=== PATIENT | female | born 1975 | race Caucasian/White ===

== ENCOUNTER 2017-03-10 10:14 | Emergency (ER) | payer OTHER ==
[~2017-03-10] VITALS: Ht 157.5 cm; Wt 107.0 kg
[~2017-03-10 10:14] MED LIST: ALBU1AER9 INH; ASCO500C43 PO; ATV5X PO; B-COTAB18 PO; CHOL100010 PO; CLX/20 PO; DIPH25CA65 PO; DIPH25TA24 PO; ESTRD2 PO; FEXO1TAB49 PO; HYDR-5688 PO; IBUP-1277 PO; MRLP527 PO; MULT-506 PO; OMEG10007 PO; OMEP20CA9 PO; OXYC-57 PO; RANI300T PO; WLLSR150 PO; ZINC1CAP PO
[2017-03-10 10:17] VITALS: TEMP 36.7; Ht 157.5 cm; Wt 107.0 kg
[2017-03-10] MEDS ORDERED: HYDROmorphone INJ 1 MG/ML SYR IV STA ×2 (10:27→12:20)
[2017-03-10] MEDS ORDERED: SODIUM CHLORIDE 0.9% 1000ML 1,000 ML IV STA (10:27)
[2017-03-10] MEDS ORDERED: ONDANSETRON INJ 2 MG/ML 2 ML VIAL IV STA (10:27)
[2017-03-10] MEDS ORDERED: CETI10TA84 PO (11:16)
[2017-03-10] MEDS ORDERED: MELA1CAP9 PO (11:16)
[2017-03-10] MEDS ORDERED: ALBU18002 INH (11:18)
[2017-03-10] MEDS ORDERED: CHOL100010 PO (11:18)
[2017-03-10 11:23] LABS: BASO % 0.4 %; BASO ABS # 0.03 K/uL (0-0.2); COMPLETE YES; EOS % 2.3 %; HEMATOCRIT 42.2 % (37-47); IG% 0.2 %; LYMPH % 20.5 %; LYMPH ABS # 1.75 K/uL (1.2-3.4); MEAN CELL VOLUME 88.3 fL (80-100); MEAN CORPUSCULAR HEMOGLOBIN 29.9 pg (25-34); MEAN CORPUSCULAR HGB CONC 33.9 g/dl (32-36); MEAN PLATELET VOLUME 10.8 fL (7.4-10.4); MONO % 6.1 %; NEUT % 70.5 %; PLATELET COUNT 218 K/uL (130-400); RED BLOOD COUNT 4.78 M/uL (4.2-5.4); WHITE BLOOD COUNT 8.54 K/uL (4.8-10.8)
[2017-03-10 11:38] LABS: ALT/SGPT 27 U/L (12-78); AST/SGOT 11 U/L (15-37); BLOOD UREA NITROGEN 18 mg/dl (7-18); BUN/CREATININE RATIO 20.9 (10-20); CALCIUM 8.6 mg/dl (8.5-10.1); CARBON DIOXIDE 25 mmol/L (21-32); CHLORIDE 109 mmol/L (98-107); CREATININE 0.84 mg/dl (0.60-1.20); GLUCOSE 135 mg/dl (70-99); POTASSIUM 4.2 mmol/L (3.5-5.1); SODIUM 140 mmol/L (136-145)
[2017-03-10 11:39] LABS: ALKALINE PHOSPHATASE 65 U/L (45-117)
[2017-03-10] MEDS ORDERED: OPTIRAY 320 IV PRN (12:30)
[2017-03-10 12:49] LABS: URINE APPEARANCE CLEAR (CLEAR); URINE BILIRUBIN NEG (NEG); URINE COLOR YELLOW; URINE EPITHELIAL CELL AUTO >30 /lpf (0-5); URINE NITRITE NEG (NEG); URINE SPECIFIC GRAVITY 1.026 (1.000-1.030); UROBILINOGEN NEG (NEG); ZZUR CULT IF INDIC CLEAN CATCH YES
[2017-03-10 12:53] LABS: MANUAL MICROSCOPIC REQUIRED? NO; REVIEW REQ? NO
--- NOTE | 2017-03-10 13:09 | DIAGNOSTIC IMAGING REPORT ---
ABDOMEN AND PELVIS CT WITH IV CONTRAST CT DOSE: 1522.35 mGy.cm HISTORY: Pain ll. Abd pain TECHNIQUE: Multiaxial CT images of the abdomen and pelvis were performed following the use of intravenous contrast. COMPARISON STUDY: None. Findings: Lung bases are clear. Liver spleen and pancreas are unremarkable. The gallbladder has been surgically removed. Nonobstructing calcification lower pole right kidney. No evidence renal hydronephrosis. Several bowel containing ventral hernias unchanged from the prior exam. No evidence for obstructive change or bowel incarceration. Chronic descending and sigmoid colonic diverticulosis. No evidence for acute diverticulitis. Appendix is normal. IMPRESSION: 1. Chronic sigmoid and descending colonic diverticulosis. 2. Several bowel containing ventral hernia is unchanged in the prior study and considered nonobstructing. 3. Nonobstructing calcification lower pole right kidney. 4. No acute process of the abdomen or pelvis. Electronically signed by: Vin Gonzalez M.D. 03/10/2017 1:07 PM Dictated Date/Time: 03/10/2017 1:04 PM
[2017-03-10 14:22] VITALS: BP 154/95; PULSE 74; O2SAT 100
--- NOTE | 2017-03-10 17:33 | EMERGENCY ROOM VISIT NOTE ---
History Report prepared by Federica: Jackie Rodríguez Under the Supervision of: Dr. [place] Michael D.O. First contact with patient: 10:20 Chief Complaint: ABDOMINAL PAIN Stated Complaint: SEVERE ABDOMINAL PAIN Nursing Triage Summary: pt here with left lower quad pain x one hour. pt states hx of diverticulitis. denies diarrhea. some nausea History of Present Illness The patient is a 41 year old female who presents to the Emergency Room with complaints of persistent LLQ abdominal pain starting 2 hours ago. She rates her discomfort as a 10/10 in severity. The pain started suddenly. She has had abdominal problems before. She has had a cholecystectomy, colon resection, and hysterectomy. She still has her appendix. She has a history of kidney stones and diverticulitis. The pain does not feel like a kidney stone. She had some dry heaving this morning. She denies any fever, dysuria or vaginal discharge. No vaginal bleeding or vaginal discharge. No exacerbating or remitting factors. Source of History: patient Onset: 2 hours ago Position: abdomen (LLQ) Symptom Intensity: 10/10 Timing: other (persistent) Associated Symptoms: No fevers Note: Pt reports dry heaving. Pt denies dysuria, vaginal discharge. Review of Systems See HPI for pertinent positives & negatives. A total of 10 systems reviewed and were otherwise negative. Past Medical & Surgical Medical Problems: (1) Anxiety State Nos (2) Asthma, Unspecified (3) Diverticulitis (4) Diverticulitis (5) Ectopic (6) Emphysema Nec (7) Endometriosis (8) Fem Pelvic Periton Adh-Post-Op/Inf (9) Hx-Venous Thrombosis&Embolism (10) Int Hemorrhoid W/O Compl (11) Ovarian Cyst Nec/Nos (12) Personal History Of Urinary Calculi (13) Ventral Hernia Nos Surgical Problems: (1) H/O oophorectomy (2) H/O: hysterectomy (3) History of bowel resection Family History Diabetes mellitus FH: diverticulitis FH: heart disease Kidney disease Social History Smoking Status: Current Every Day Smoker Alcohol Use: occasionally Drug Use: none Marital Status: Housing Status: lives with significant other Occupation Status: employed Current/Historical Medications Scheduled Ascorbic Acid (Vitamin C 500 mg), 1,000 MG PO DAILY B-Complex Vitamins (Vitamin B Complex), 1 TAB PO DAILY Bupropion HCl (Bupropion HCl Sr), 150 MG PO BID Cetirizine (Zyrtec), 10 MG PO DAILY Cholecalciferol (Vitamin D), 1,000-2,000 UNITS PO DAILY Citalopram (Citalopram Hydrobromide), 20 MG PO DAILY Estradiol (Estradiol), 2 MG PO DAILY Fish Oil (Peebles-3), 1 CAP PO DAILY Melatonin (Melatonin), 10 MG PO HS Multivitamin (Multivitamin), 1 TAB PO DAILY Omeprazole (Prilosec), 20 MG PO BID Ranitidine Hcl (Zantac), 300 MG PO HS Scheduled PRN Albuterol Sulfate (Proair Respiclick), 2 PUFFS INH QID PRN for SOB/Wheezing Diphenhydramine Hcl (Benadryl Allergy), 2 CAP PO UD PRN for ALLERGIC REACTION Ibuprofen (Advil), 600 MG PO Q6H PRN for Pain Lorazepam (Lorazepam), 0.5 MG PO TID PRN for Anxiety Polyethylene (Polyethylene Glycol 3350), 1 TBS PO DAILY PRN for Severe Constipation Allergies Coded Allergies: Piperacillin (Verified Allergy, Severe, SHORTNESS OF BREATH, 10/31/16) Tazobactam (Verified Allergy, Severe, SHORTNESS OF BREATH, 10/31/16) Morphine (Verified Adverse Reaction, Unknown, GI SYMPTOMS, 10/31/16) Physical Exam Vital Signs Date Time Temp Pulse Resp B/P Pulse Ox O2 Delivery O2 Flow Rate FiO2 03/10/17 14:22 74 16 154/95 100 03/10/17 13:16 88 20 150/83 98 Room Air 03/10/17 10:17 36.7 83 16 95 Physical Exam GENERAL: sitting up in bed, disheveled, moderate distress, holding LLQ EYE EXAM: normal conjunctiva OROPHARYNX: no exudate, no erythema, lips, buccal mucosa, and tongue normal and mucous membranes are moist NECK: supple, no nuchal rigidity, no adenopathy, non-tender LUNGS: Clear to auscultation. Normal chest wall mechanics HEART: no murmurs, S1 normal and S2 normal ABDOMEN: abdomen soft, tenderness to palpation in the LLQ, normo-active bowel sounds, no masses, no rebound or guarding. BACK: Back is symmetrical on inspection and there is no deformity, no midline tenderness, no CVA tenderness. SKIN: no rashes and no bruising UPPER EXTREMITIES: upper extremities are grossly normal. LOWER EXTREMITIES: No pitting edema. NEURO EXAM: Normal sensorium, cranial nerves II-XII grossly intact, normal speech, no gross weakness of arms, no gross weakness of legs. Medical Decision & Procedures ER Provider Diagnostic Interpretation: Radiology results as stated below per my review and the radiologist's interpretation: ABDOMEN AND PELVIS CT WITH IV CONTRAST CT DOSE: 1522.35 mGy.cm HISTORY: Pain ll. Abd pain TECHNIQUE: Multiaxial CT images of the abdomen and pelvis were performed following the use of intravenous contrast. COMPARISON STUDY: None. Findings: Lung bases are clear. Liver spleen and pancreas are unremarkable. The gallbladder has been surgically removed. Nonobstructing calcification lower pole right kidney. No evidence renal hydronephrosis. Several bowel containing ventral hernias unchanged from the prior exam. No evidence for obstructive change or bowel incarceration. Chronic descending and sigmoid colonic diverticulosis. No evidence for acute diverticulitis. Appendix is normal. IMPRESSION: 1. Chronic sigmoid and descending colonic diverticulosis. 2. Several bowel containing ventral hernia is unchanged in the prior study and considered nonobstructing. 3. Nonobstructing calcification lower pole right kidney. 4. No acute process of the abdomen or pelvis. Electronically signed by: Vin Gonzalez M.D. 03/10/2017 1:07 PM Dictated Date/Time: 03/10/2017 1:04 PM Laboratory Results 03/10/17 11:08 Red Blood Count 4.78, Mean Corpuscular Volume 88.3, Mean Corpuscular Hemoglobin 29.9, Mean Corpuscular Hemoglobin Concent 33.9, Mean Platelet Volume 10.8, Neutrophils (%) (Auto) 70.5, Lymphocytes (%) (Auto) 20.5, Monocytes (%) (Auto) 6.1, Eosinophils (%) (Auto) 2.3, Basophils (%) (Auto) 0.4, Neutrophils # (Auto) 6.02, Lymphocytes # (Auto) 1.75, Monocytes # (Auto) 0.52, Eosinophils # (Auto) 0.20, Basophils # (Auto) 0.03 03/10/17 11:08 Test 03/10/17 11:08 03/10/17 12:30 White Blood Count 8.54 K/uL (4.8-10.8) Red Blood Count 4.78 M/uL (4.2-5.4) Hemoglobin 14.3 g/dL (12.0-16.0) Hematocrit 42.2 % (37-47) Mean Corpuscular Volume 88.3 fL (80-100) Mean Corpuscular Hemoglobin 29.9 pg (25-34) Mean Corpuscular Hemoglobin Concent 33.9 g/dl (32-36) Platelet Count 218 K/uL (130-400) Mean Platelet Volume 10.8 fL (7.4-10.4) Neutrophils (%) (Auto) 70.5 % Lymphocytes (%) (Auto) 20.5 % Monocytes (%) (Auto) 6.1 % Eosinophils (%) (Auto) 2.3 % Basophils (%) (Auto) 0.4 % Neutrophils # (Auto) 6.02 K/uL (1.4-6.5) Lymphocytes # (Auto) 1.75 K/uL (1.2-3.4) Monocytes # (Auto) 0.52 K/uL (0.11-0.59) Eosinophils # (Auto) 0.20 K/uL (0-0.5) Basophils # (Auto) 0.03 K/uL (0-0.2) RDW Standard Deviation 44.7 fL (36.4-46.3) RDW Coefficient of Variation 13.8 % (11.5-14.5) Immature Granulocyte % (Auto) 0.2 % Immature Granulocyte # (Auto) 0.02 K/uL (0.00-0.02) Anion Gap 6.0 mmol/L (3-11) Est Creatinine Clear Calc Drug Dose 103.4 ml/min Estimated GFR () 101.5 Estimated GFR (Non- 87.6 BUN/Creatinine Ratio 20.9 (10-20) Calcium Level 8.6 mg/dl (8.5-10.1) Total Bilirubin 0.3 mg/dl (0.2-1) Direct Bilirubin < 0.1 mg/dl (0-0.2) Aspartate Amino Transf (AST/SGOT) 11 U/L (15-37) Alanine Aminotransferase (ALT/SGPT) 27 U/L (12-78) Alkaline Phosphatase 65 U/L (45-117) Total Protein 7.5 gm/dl (6.4-8.2) Albumin 3.5 gm/dl (3.4-5.0) Lipase 120 U/L (73-393) Urine Color YELLOW Urine Appearance CLEAR (CLEAR) Urine pH 5.0 (4.5-7.5) Urine Specific [place] 1.026 (1.000-1.030) Urine Protein NEG (NEG) Urine Glucose (UA) NEG (NEG) Urine Ketones NEG (NEG) Urine Occult Blood 1+ (NEG) Urine Nitrite NEG (NEG) Urine Bilirubin NEG (NEG) Urine Urobilinogen NEG (NEG) Urine Leukocyte Esterase SMALL (NEG) Urine WBC (Auto) 5-10 /hpf (0-5) Urine RBC (Auto) 5-10 /hpf (0-4) Urine Hyaline Casts (Auto) 1-5 /lpf (0-5) Urine Epithelial Cells (Auto) >30 /lpf (0-5) Urine Bacteria (Auto) 2+ (NEG) Urine Test NEG (NEG) Laboratory results per my review. Medications Administered Medications (Trade) Dose Ordered Sig/Alison Route Start Time Stop Time Status Last Admin Dose Admin Sodium Chloride (Nss 1000ml) 1,000 ml @ 999 mls/hr Q1H1M STAT IV 03/10/17 10:27 03/10/17 11:27 DC 03/10/17 10:27 999 MLS/HR Ondansetron HCl (Zofran Inj) 4 mg NOW STAT IV 03/10/17 10:27 03/10/17 10:29 DC 03/10/17 11:20 4 MG Hydromorphone HCl (Dilaudid Inj) 1 mg NOW STAT IV 03/10/17 10:27 03/10/17 10:29 DC 03/10/17 11:21 1 MG Hydromorphone HCl (Dilaudid Inj) 1 mg NOW STAT IV 03/10/17 12:20 03/10/17 12:21 DC 03/10/17 12:26 1 MG ED Course ED COURSE: Vital signs were reviewed and showed tachycardia. The patients medical record was reviewed The above diagnostic studies were performed and reviewed. ED treatments and interventions as stated above. 1021: The patient was evaluated in room A10. A complete history and physical examination was performed. 1027: Dilaudid Inj 1 mg IV, Zofran Inj 4 mg IV, NSS 1000 ml @ 999 mls/hr IV. 1220: Dilaudid Inj 1 mg IV. 1348: Upon reevaluation, the patient is resting comfortably.I discussed my findings with the patient and she understands and agrees with the treatment plan. Based on the patients age, coexisting illnesses, exam and lab findings the decision to treat as an outpatient was made. The patient remained stable while under my care. The patient appeared well at the time of discharge. Medical Decision Differential diagnoses includes but is not limited to gastritis, peptic ulcer disease, GERD, gallbladder disease, pancreatitis, small bowel obstruction, acute coronary syndrome, pericarditis, ischemic bowel, irritable bowel disease, irritable bowel syndrome, appendicitis, diverticulitis, malignancy, hernia, urinary tract infection, torsion, perforation, trauma, infectious. Patient is a 41-year-old female who presents the ER for left lower quadrant pain which started suddenly around 1:30. She does have a history of diverticulitis and kidney stones. She has had a previous cholecystectomy and total hysterectomy. CBC along with BMP, LFTs, bilirubin and lipase was unremarkable. UA shows greater than 30 epithelial cells with a small amount of white cells and leuks. She was given 2 doses of IV narcotics and had significant improvement of her pain. CT of her abdomen pelvis was unremarkable. Urine was negative. Patient was updated in regards to findings and was discharged comfortable to follow-up with her PCP for an abdominal recheck. Discussed with Pt concerning signs and symptoms to watch out for. Pt was instructed to follow up with their PCP and discussed with the patient their option to return to the ED at anytime for persistent or worsening symptoms. The appropriate anticipatory guidance and out-patient management, including indications for return to the emergency department, were explained at length to the patient and understood. Impression Primary Impression: Abdominal pain Scribe Attestation The scribe's documentation has been prepared under my direction and personally reviewed by me in its entirety. I confirm that the note above accurately reflects all work, treatment, procedures, and medical decision making performed by me. Departure Information Dispostion Home / Self-Care Referrals Jenna Romero M.D. (MEDICAL) (PCP) Forms Call Back Authorization, HOME CARE DOCUMENTATION FORM, IMPORTANT VISIT INFORMATION Patient Instructions Abdominal Pain - [facility], [facility] Additional Instructions Please follow up with your primary care doctor with in the next 24 hours. Any worsening of your symptoms, please return to the ED immediately. This includes fevers greater than 100.4, worsening pain, unable to eat or drink, or any other concerning signs or symptoms from your standpoint. Please take Motrin or Tylenol as needed for pain. Problem Qualifiers Primary Impression: Abdominal pain Abdominal location: unspecified location Qualified Codes: R10.9 - Unspecified abdominal pain
== END 2017-03-10 14:24 | disposition home or self-care (01) ==
LOC: C.EDB 10:15 → C.EDA 14:24
DX: R10.32 Left lower quadrant pain (principal); Z90.49 Acquired absence of other specified parts of digestive tract; Z90.710 Acquired absence of both cervix and uterus; Z87.442 Personal history of urinary calculi; F41.9 Anxiety disorder, unspecified; Z83.3 Family history of diabetes mellitus; J45.909 Unspecified asthma, uncomplicated; Z79.899 Other long term (current) drug therapy

== ENCOUNTER 2017-06-29 16:28 | Emergency (ER) | payer BC, OTHER ==
[~2017-06-29] VITALS: Ht 157.5 cm; Wt 113.4 kg
[~2017-06-29 16:28] MED LIST changes: +ALBU18002 INH; -ALBU1AER9 INH; +CETI10TA84 PO; -DIPH25TA24 PO; -FEXO1TAB49 PO; -HYDR-5688 PO; +MELA1CAP9 PO; -OXYC-57 PO; -ZINC1CAP PO
[2017-06-29 16:30] VITALS: Ht 157.5 cm; Wt 113.4 kg
[2017-06-29] MEDS ORDERED: FEXO1TAB58 PO (16:42)
[2017-06-29] MEDS ORDERED: ONDANSETRON INJ 2 MG/ML 2 ML VIAL IV STA (17:16)
[2017-06-29] MEDS ORDERED: SODIUM CHLORIDE 0.9% 1000ML 1,000 ML IV SCH (17:30)
[2017-06-29] MEDS ORDERED: FENTANYL CITRATE INJ 50 MCG/1 ML 2 ML VIAL IV ONE (17:30)
[2017-06-29 18:00] LABS: BASO % 0.4 %; BASO ABS # 0.04 K/uL (0-0.2); COMPLETE YES; EOS % 1.9 %; HEMATOCRIT 41.8 % (37-47); IG% 0.3 %; LYMPH % 23.1 %; LYMPH ABS # 2.46 K/uL (1.2-3.4); MEAN CELL VOLUME 89.9 fL (80-100); MEAN CORPUSCULAR HEMOGLOBIN 31.2 pg (25-34); MEAN CORPUSCULAR HGB CONC 34.7 g/dl (32-36); MEAN PLATELET VOLUME 11.1 fL (7.4-10.4); MONO % 6.1 %; NEUT % 68.2 %; PLATELET COUNT 208 K/uL (130-400); RED BLOOD COUNT 4.65 M/uL (4.2-5.4); WHITE BLOOD COUNT 10.67 K/uL (4.8-10.8)
[2017-06-29 18:02] LABS: VEN BLOOD GAS BASE EXCESS 0.5 mEq/L
[2017-06-29 18:27] LABS: ALT/SGPT 37 U/L (12-78); BLOOD UREA NITROGEN 20 mg/dl (7-18); BUN/CREATININE RATIO 25.2 (10-20); CALCIUM 8.9 mg/dl (8.5-10.1); CARBON DIOXIDE 25 mmol/L (21-32); CHLORIDE 109 mmol/L (98-107); GLUCOSE 133 mg/dl (70-99); SODIUM 140 mmol/L (136-145)
[2017-06-29 18:30] LABS: ALKALINE PHOSPHATASE 69 U/L (45-117); AST/SGOT 20 U/L (15-37)
[2017-06-29] MEDS ORDERED: METOCLOPRAMIDE HCL INJ 5 MG/ML 2 ML VIAL IV STA (18:59)
[2017-06-29] MEDS ORDERED: HYDROmorphone INJ 0.5 MG/0.5 ML SYR IV STA (18:59)
[2017-06-29] MEDS ORDERED: OPTIRAY 320 IV PRN (20:00)
--- NOTE | 2017-06-29 20:21 | DIAGNOSTIC IMAGING REPORT ---
CT ABD/PELVIS IV AND ORAL CONT CLINICAL HISTORY: Diffuse abdominal pain. History of salpingo-oophorectomy, hysterectomy, partial colectomy. COMPARISON STUDY: 03/10/2017 TECHNIQUE: Following the IV administration of 92 mL of Optiray-320, CT scan of the abdomen and pelvis was performed from the lung bases to the proximal femurs. Images are reviewed in the axial, sagittal, and coronal planes. IV contrast was administered without complication. A dose lowering technique was utilized adhering to the principles of ALARA. CT DOSE: 1464.33 mGy.cm FINDINGS: Lower chest: There are minimal dependent atelectatic changes. Liver: There is hepatic steatosis. No focal masses are visualized. Gallbladder: Surgically absent Spleen: Normal in size and attenuation. Pancreas: Unremarkable. Adrenal glands: Unremarkable. Kidneys: No focal renal masses are visualized. There is a 3 mm nonobstructing lower pole right renal calculus. There is no hydronephrosis. Bowel: There are no transition zones indicate bowel obstruction. The appendix appears normal. There is colonic diverticulosis. There is a sigmoid anastomotic suture line. There is no acute diverticulitis. There is a bilobed umbilical hernia containing small bowel and colonic loops. There is no current evidence of obstruction. There is a lower ventral hernia containing small bowel loops. There is no current evidence of obstruction. Peritoneum: There is no intraperitoneal free air or abdominal ascites. Vasculature: The abdominal aorta is normal in course and caliber. Adenopathy: None. Pelvic viscera: The uterus appears surgically absent Skeletal structures: No destructive osseous lesions are seen. IMPRESSION: 1. No evidence of bowel obstruction. No evidence of free air 2. Nonobstructing 3 mm lower pole right renal calculus 3. Moderate diverticulosis. No evidence of acute diverticulitis 4. Normal appendix 5. Bowel containing ventral hernias, similar to the preceding study. Electronically signed by: Merrill Avalos M.D. 06/29/2017 8:19 PM Dictated Date/Time: 06/29/2017 8:14 PM
[2017-06-29 20:22] LABS: URINE APPEARANCE CLEAR (CLEAR); URINE BILIRUBIN NEG (NEG); URINE COLOR YELLOW; URINE NITRITE NEG (NEG); URINE SPECIFIC GRAVITY 1.022 (1.000-1.030); UROBILINOGEN NEG (NEG); ZZUR CULT IF INDIC CLEAN CATCH NO
[2017-06-29 20:25] LABS: MANUAL MICROSCOPIC REQUIRED? NO; REVIEW REQ? NO
[2017-06-29] MEDS ORDERED: ONDANSETRON 4MG OD TAB PO STA (20:52)
[2017-06-29] MEDS ORDERED: TRAMADOL HCL 50 MG TAB PO STA (20:52)
--- NOTE | 2017-06-29 20:58 | EMERGENCY ROOM VISIT NOTE ---
History Report prepared by Federica: Flex Prado Under the Supervision of: Dr. Reji Garcia M.D. First contact with patient: 16:33 Chief Complaint: ABDOMINAL PAIN Stated Complaint: ABDOMINAL PAIN Nursing Triage Summary: patietn c/o generalized abdominal and nausea since around 1300 today. denies vomiting, diarrhea. History of Present Illness The patient is a 42 year old white female who presents to the ED with a cc of centralized abdominal pain. History of hysterectomy, oophorectomy, cholecystectomy, and colon resection. Hysterectomy was due to a ruptured ectopic , and colon resection was related to diverticulitis. Symptoms began four hours ago and have been constant since. Feels that her lower abdomen is "hard". Pain described as "sharp". Positive nausea. Her pain is improved and worsened with sitting in certain positions. Negative urinary symptoms, leg swelling, bloody stool, vaginal discharge, vomiting. No recent travel. No recent injury or straining. Source of History: patient Onset: Four hours ago Position: abdomen (centralized) Quality: sharp Timing: constant Modifying Factors (Worsening): other (sitting in certain positions) Modifying Factors (Relieving): other (sitting in certain positions) Associated Symptoms: + nausea, No vomiting, No hematochezia, No urinary symptoms Note: The patient denies vaginal discharge, or leg swelling. Review of Systems See HPI for pertinent positives and negatives. A total of ten systems were reviewed and were otherwise negative. Past Medical & Surgical Medical Problems: (1) Anxiety State Nos (2) Asthma, Unspecified (3) Diverticulitis (4) Diverticulitis (5) Ectopic (6) Emphysema Nec (7) Endometriosis (8) Fem Pelvic Periton Adh-Post-Op/Inf (9) Hx-Venous Thrombosis&Embolism (10) Int Hemorrhoid W/O Compl (11) Ovarian Cyst Nec/Nos (12) Personal History Of Urinary Calculi (13) Ventral Hernia Nos Surgical Problems: (1) H/O oophorectomy (2) H/O: hysterectomy (3) History of bowel resection Family History Diabetes mellitus FH: diverticulitis FH: heart disease Kidney disease Social History Smoking Status: Current Every Day Smoker Alcohol Use: occasionally Drug Use: none Marital Status: Housing Status: lives with significant other Occupation Status: employed Current/Historical Medications Scheduled B-Complex Vitamins (Vitamin B Complex), 1 TAB PO DAILY Cholecalciferol (Vitamin D), 1,000-2,000 UNITS PO DAILY Fexofenadine-Pseudoephedrine (Aleida-D 24 Hour Allergy), 1 TAB PO DAILY Fish Oil (Tahoma-3), 1 CAP PO DAILY Melatonin (Melatonin), 10 MG PO HS Scheduled PRN Albuterol Sulfate (Proair Respiclick), 2 PUFFS INH QID PRN for SOB/Wheezing Diphenhydramine Hcl (Benadryl Allergy), 2 CAP PO UD PRN for ALLERGIC REACTION Ibuprofen (Advil), 600 MG PO Q6H PRN for Pain Allergies Coded Allergies: Piperacillin (Verified Allergy, Severe, SHORTNESS OF BREATH, 06/29/17) Tazobactam (Verified Allergy, Severe, SHORTNESS OF BREATH, 06/29/17) Morphine (Verified Adverse Reaction, Unknown, GI SYMPTOMS, 06/29/17) Physical Exam Vital Signs Date Time Temp Pulse Resp B/P (MAP) Pulse Ox O2 Delivery O2 Flow Rate FiO2 06/29/17 22:03 36.7 77 18 168/130 98 06/29/17 20:14 77 18 168/130 98 Room Air 06/29/17 19:27 85 20 190/131 96 06/29/17 16:30 36.7 104 18 160/107 97 Room Air Physical Exam GENERAL: Awake, alert, well-appearing. Tearful on exam. HENT: Normocephalic, atraumatic. EYES: Normal conjunctiva. Sclera non-icteric. NECK: Supple. No nuchal rigidity. FROM. RESPIRATORY: CTAB, no rhonchi, wheezing, crackles CARDIAC: RRR, no MRG ABDOMEN: Soft, BS+. Periumbilical tenderness. Mild Suprapubic tenderness. MSK: No chest wall TTP, no LE edema NEURO: GCS 15, CN 2-12 intact, moves all 4s on command SKIN: No rash or jaundice noted. Warm to the touch. Medical Decision & Procedures ER Provider Diagnostic Interpretation: CT: Radiology results as stated below per my review and radiologist interpretation CT ABD/PELVIS IV AND ORAL CONT FINDINGS: Lower chest: There are minimal dependent atelectatic changes. Liver: There is hepatic steatosis. No focal masses are visualized. Gallbladder: Surgically absent Spleen: Normal in size and attenuation. Pancreas: Unremarkable. Adrenal glands: Unremarkable. Kidneys: No focal renal masses are visualized. There is a 3 mm nonobstructing lower pole right renal calculus. There is no hydronephrosis. Bowel: There are no transition zones indicate bowel obstruction. The appendix appears normal. There is colonic diverticulosis. There is a sigmoid anastomotic suture line. There is no acute diverticulitis. There is a bilobed umbilical hernia containing small bowel and colonic loops. There is no current evidence of obstruction. There is a lower ventral hernia containing small bowel loops. There is no current evidence of obstruction. Peritoneum: There is no intraperitoneal free air or abdominal ascites. Vasculature: The abdominal aorta is normal in course and caliber. Adenopathy: None. Pelvic viscera: The uterus appears surgically absent Skeletal structures: No destructive osseous lesions are seen. IMPRESSION: 1. No evidence of bowel obstruction. No evidence of free air 2. Nonobstructing 3 mm lower pole right renal calculus 3. Moderate diverticulosis. No evidence of acute diverticulitis 4. Normal appendix 5. Bowel containing ventral hernias, similar to the preceding study. Electronically signed by: Merrill Avalos M.D. Laboratory Results 06/29/17 17:50 Red Blood Count 4.65, Mean Corpuscular Volume 89.9, Mean Corpuscular Hemoglobin 31.2, Mean Corpuscular Hemoglobin Concent 34.7, Mean Platelet Volume 11.1, Neutrophils (%) (Auto) 68.2, Lymphocytes (%) (Auto) 23.1, Monocytes (%) (Auto) 6.1, Eosinophils (%) (Auto) 1.9, Basophils (%) (Auto) 0.4, Neutrophils # (Auto) 7.29, Lymphocytes # (Auto) 2.46, Monocytes # (Auto) 0.65, Eosinophils # (Auto) 0.20, Basophils # (Auto) 0.04 06/29/17 17:50 Test 06/29/17 17:50 06/29/17 20:00 White Blood Count 10.67 K/uL (4.8-10.8) Red Blood Count 4.65 M/uL (4.2-5.4) Hemoglobin 14.5 g/dL (12.0-16.0) Hematocrit 41.8 % (37-47) Mean Corpuscular Volume 89.9 fL (80-100) Mean Corpuscular Hemoglobin 31.2 pg (25-34) Mean Corpuscular Hemoglobin Concent 34.7 g/dl (32-36) Platelet Count 208 K/uL (130-400) Mean Platelet Volume 11.1 fL (7.4-10.4) Neutrophils (%) (Auto) 68.2 % Lymphocytes (%) (Auto) 23.1 % Monocytes (%) (Auto) 6.1 % Eosinophils (%) (Auto) 1.9 % Basophils (%) (Auto) 0.4 % Neutrophils # (Auto) 7.29 K/uL (1.4-6.5) Lymphocytes # (Auto) 2.46 K/uL (1.2-3.4) Monocytes # (Auto) 0.65 K/uL (0.11-0.59) Eosinophils # (Auto) 0.20 K/uL (0-0.5) Basophils # (Auto) 0.04 K/uL (0-0.2) RDW Standard Deviation 43.5 fL (36.4-46.3) RDW Coefficient of Variation 13.2 % (11.5-14.5) Immature Granulocyte % (Auto) 0.3 % Immature Granulocyte # (Auto) 0.03 K/uL (0.00-0.02) Venous Blood pH 7.42 (7.36-7.41) Venous Blood Partial Pressure CO2 40 mmHg (38.0-50.0) Venous Blood Partial Pressure O2 55 mmHg Venous Blood HCO3 25 mmol/L Venous Blood Oxygen Saturation 89.0 % Venous Blood Base Excess 0.5 mEq/L Anion Gap 6.0 mmol/L (3-11) Est Creatinine Clear Calc Drug Dose 111.3 ml/min Estimated GFR () 106.9 Estimated GFR (Non- 92.2 BUN/Creatinine Ratio 25.2 (10-20) Lactic Acid Level 1.0 mmol/L (0.4-2.0) Calcium Level 8.9 mg/dl (8.5-10.1) Total Bilirubin 0.2 mg/dl (0.2-1) Direct Bilirubin < 0.1 mg/dl (0-0.2) Aspartate Amino Transf (AST/SGOT) 20 U/L (15-37) Alanine Aminotransferase (ALT/SGPT) 37 U/L (12-78) Alkaline Phosphatase 69 U/L (45-117) Total Protein 7.2 gm/dl (6.4-8.2) Albumin 3.5 gm/dl (3.4-5.0) Lipase 107 U/L (73-393) Urine Color YELLOW Urine Appearance CLEAR (CLEAR) Urine pH 5.0 (4.5-7.5) Urine Specific Draper 1.022 (1.000-1.030) Urine Protein NEG (NEG) Urine Glucose (UA) NEG (NEG) Urine Ketones NEG (NEG) Urine Occult Blood 1+ (NEG) Urine Nitrite NEG (NEG) Urine Bilirubin NEG (NEG) Urine Urobilinogen NEG (NEG) Urine Leukocyte Esterase NEG (NEG) Urine WBC (Auto) 1-5 /hpf (0-5) Urine RBC (Auto) 0-4 /hpf (0-4) Urine Hyaline Casts (Auto) 0 /lpf (0-5) Urine Epithelial Cells (Auto) 10-20 /lpf (0-5) Urine Bacteria (Auto) NEG (NEG) Urine Test NEG (NEG) Laboratory results reviewed by me Medications Administered Medications (Trade) Dose Ordered Sig/Alison Route Start Time Stop Time Status Last Admin Dose Admin Ondansetron HCl (Zofran Inj) 4 mg NOW STAT IV 06/29/17 17:16 06/29/17 17:20 DC 06/29/17 17:16 4 MG Sodium Chloride 1,000 ml @ 999 mls/hr Q1H1M IV 06/29/17 17:30 06/29/17 22:51 DC 06/29/17 17:30 999 MLS/HR Fentanyl Citrate (Fentanyl Inj) 100 mcg NOW ONCE IV 06/29/17 17:30 06/29/17 17:31 DC 06/29/17 17:30 100 MCG Hydromorphone HCl (Dilaudid Inj) 0.5 mg NOW STAT IV 06/29/17 18:59 06/29/17 19:00 DC 06/29/17 19:14 0.5 MG Metoclopramide HCl (Reglan Inj) 10 mg NOW STAT IV 06/29/17 18:59 06/29/17 19:00 DC 06/29/17 19:14 10 MG Ondansetron HCl (Zofran Odt) 8 mg NOW STAT PO 06/29/17 20:52 06/29/17 20:55 DC 06/29/17 22:10 8 MG Ondansetron HCl (ZOFRAN ODT 4MG Home Pack) 1 homepack UD ONCE PO 06/29/17 21:00 06/29/17 21:01 DC 06/29/17 22:10 1 HOMEPACK Tramadol HCl (Ultram Home Pack) 1 homepack UD ONCE PO 06/29/17 21:00 06/29/17 21:01 DC 06/29/17 22:10 1 HOMEPACK Tramadol HCl (Ultram Tab) 50 mg NOW STAT PO 06/29/17 20:52 06/29/17 20:55 DC 06/29/17 22:10 50 MG ECG Indication: chest pain Rate (beats per minute): 73 Rhythm: normal sinus Findings: other (single isolated inferior Q wave in lead 3, single isolated ? elevation in V2 but w/o continguous changes, no other STS changes or TWI present ) ED Course 1707: The patient was evaluated in room B3B. A complete history and physical exam was performed. 1854: I reassessed the patient. She is still having pain. Medical Decision The patient is a 42 year old white female who presents to the ED with a cc of centralized abdominal pain. Differential diagnoses include but are not limited to: PUD, appendicitis, kidney stone, gastritis, and bowel obstruction. Patient blood work fairly unremarkable. UA, UPT neg for infection/ respectively. Patient pain improved. Patient CT negative acute for medical or surgical emergency requiring admission. Patient tolerated PO. Patient w/ mild CP upon being told would be discharged. EKG was obtained to evaluate. No STS changes or TWI in contiguous leads, less likely ACS. Patient feeling improved. Given f/u, d/c, and return precautions and patient d/c'ed to home. Impression Primary Impression: Abdominal pain Scribe Attestation The scribe's documentation has been prepared under my direction and personally reviewed by me in its entirety. I confirm that the note above accurately reflects all work, treatment, procedures, and medical decision making performed by me. Departure Information Dispostion Home / Self-Care Referrals Jenna Romero M.D. (MEDICAL) (PCP) Patient Instructions Abdominal Pain, Diet High Fiber, My [employer] Additional Instructions Please take your medications as prescribed. If you worsening symptoms not amenable to at-home treatment please call your primary care physician's office or return to the ED for further management.
[2017-06-29] MEDS ORDERED: ONDANSETRON HOME PACK 4MG OD TAB PO ONE (21:00)
[2017-06-29] MEDS ORDERED: TRAMADOL HCL 50 MG HOME PACK PO ONE (21:00)
[2017-06-29 22:03] VITALS: BP 168/130; PULSE 77; TEMP 36.7; O2SAT 98
== END 2017-06-29 22:05 | disposition home or self-care (01) ==
LOC: C.EDB 16:29
DX: R10.30 Lower abdominal pain, unspecified (principal); F41.9 Anxiety disorder, unspecified; K57.92 Diverticulitis of intestine, part unspecified, without perforation or abscess without bleeding; J43.9 Emphysema, unspecified; J45.909 Unspecified asthma, uncomplicated; N83.209 Unspecified ovarian cyst, unspecified side; F17.200 Nicotine dependence, unspecified, uncomplicated; Z86.718 Personal history of other venous thrombosis and embolism; Z87.442 Personal history of urinary calculi; Z90.710 Acquired absence of both cervix and uterus; Z79.899 Other long term (current) drug therapy; Z88.5 Allergy status to narcotic agent; Z88.8 Allergy status to other drugs, medicaments and biological substances; Z83.3 Family history of diabetes mellitus; Z83.79 Family history of other diseases of the digestive system; Z82.49 Family history of ischemic heart disease and other diseases of the circulatory system; Z84.1 Family history of disorders of kidney and ureter

== ENCOUNTER 2018-07-11 18:44 | Emergency (ER) | payer BC, OTHER ==
[~2018-07-11] VITALS: Ht 154.9 cm; Wt 122.3 kg
[~2018-07-11 18:44] MED LIST changes: -ASCO500C43 PO; -ATV5X PO; -CETI10TA84 PO; -CLX/20 PO; -ESTRD2 PO; +FEXO1TAB58 PO; -MRLP527 PO; -MULT-506 PO; -OMEP20CA9 PO; -RANI300T PO; -WLLSR150 PO
[2018-07-11 18:47] VITALS: TEMP 37; Ht 154.9 cm; Wt 122.3 kg
[2018-07-11] MEDS ORDERED: KETOROLAC TROMETHAMINE 30 MG/ML VIAL IV STA (19:03)
[2018-07-11] MEDS ORDERED: FENTANYL CITRATE INJ 50 MCG/1 ML 2 ML VIAL IV STA (19:03)
[2018-07-11] MEDS ORDERED: SODIUM CHLORIDE 0.9% 1000ML 1,000 ML IV STA (19:03)
[2018-07-11] MEDS ORDERED: ONDANSETRON INJ 2 MG/ML 2 ML VIAL IV STA (19:03)
[2018-07-11 20:00] LABS: BASO % 0.3 %; BASO ABS # 0.03 K/uL (0-0.2); EOS % 1.8 %; EOS ABS # 0.21 K/uL (0-0.5); HEMATOCRIT 41.4 % (37-47); HEMOGLOBIN 14.4 g/dL (12.0-16.0); IG# 0.03 K/uL (0.00-0.02); LYMPH % 22.2 %; LYMPH ABS # 2.53 K/uL (1.2-3.4); MEAN CELL VOLUME 89.2 fL (80-100); MEAN CORPUSCULAR HGB CONC 34.8 g/dl (32-36); MEAN PLATELET VOLUME 11.7 fL (7.4-10.4); MONO % 4.6 %; MONO ABS # 0.52 K/uL (0.11-0.59); NEUT % 70.8 %; NEUT ABS # 8.09 K/uL (1.4-6.5); PLATELET COUNT 197 K/uL (130-400); RED CELL DISTRIBUTION WIDTH CV 13.5 % (11.5-14.5); RED CELL DISTRIBUTION WIDTH SD 43.9 fL (36.4-46.3); WHITE BLOOD COUNT 11.41 K/uL (4.8-10.8)
[2018-07-11 20:29] LABS: CREATININE 1.03 mg/dl (0.60-1.20)
[2018-07-11 20:30] LABS: ALBUMIN 3.6 gm/dl (3.4-5.0); CALCIUM 8.7 mg/dl (8.5-10.1); POTASSIUM 3.7 mmol/L (3.5-5.1); TOTAL PROTEIN 7.5 gm/dl (6.4-8.2)
--- NOTE | 2018-07-11 20:56 | DIAGNOSTIC IMAGING REPORT ---
RENAL ULTRASOUND CLINICAL HISTORY: Right flank pain. Evaluate for hydronephrosis. COMPARISON STUDY: CT of the abdomen and pelvis June 29, 2017. TECHNIQUE: Sonography of the kidneys and the urinary bladder was performed. FINDINGS: Exam is compromised by suboptimal penetration. Incidental note is made of fatty infiltration of the liver. There is no definite hydronephrosis. The right kidney measures 10 x 3.9 x 4.9 cm and the left measures 11.1 x 5 x 4.3 cm. Neither ureteral jet was identified. No bladder abnormality was identified. IMPRESSION: 1. Technically difficult exam but no definite hydronephrosis. 2. Fatty liver. Electronically signed by: Fabio Hennessy M.D. 07/11/2018 8:55 PM Dictated Date/Time: 07/11/2018 8:52 PM
[2018-07-11] MEDS ORDERED: ONDANSETRON HOME PACK 4MG OD TAB PO ONE (21:15)
[2018-07-11] MEDS ORDERED: OXYCODONE IR HOME PACK PO ONE (21:15)
--- NOTE | 2018-07-11 21:22 | DIAGNOSTIC IMAGING REPORT ---
L-SPINE MIN 4 VIEWS ROUTINE CLINICAL HISTORY: Back pain. Evaluate for fracture. COMPARISON: CT of the abdomen and pelvis June 29, 2017. FINDINGS: Alignment of the lumbar spine is anatomic. Vertebral body heights are maintained. There is no fracture or suspicious lesion. Disc spaces are preserved. Sacroiliac joints are intact. Renal calculi are better depicted on the concurrently performed KUB. IMPRESSION: Unremarkable lumbar spine radiographs. Electronically signed by: Fabio Hennessy M.D. 07/11/2018 9:20 PM Dictated Date/Time: 07/11/2018 9:18 PM
--- NOTE | 2018-07-11 21:24 | DIAGNOSTIC IMAGING REPORT ---
KUB CLINICAL HISTORY: Right-sided pain. Evaluate for stone. COMPARISON STUDY: CT of the abdomen and pelvis June 29, 2017. FINDINGS: There may be a punctate stone within the left kidney. A few small right renal calculi measure up to 5 mm. A left pelvic calcification represents a phlebolith. No ureteral calculi are identified. The bowel gas pattern is normal. IMPRESSION: 1. Bilateral nephrolithiasis. 2. No ureteral calculi identified. Electronically signed by: Fabio Hennessy M.D. 07/11/2018 9:22 PM Dictated Date/Time: 07/11/2018 9:20 PM
[2018-07-11] MEDS ORDERED: ONDA4TAB10 SL (21:36)
[2018-07-11] MEDS ORDERED: OXYC-90 PO (21:36)
[2018-07-11 21:52] VITALS: BP 159/90; PULSE 87; O2SAT 98
[2018-07-11] MEDS ORDERED: NITR-5 PO (22:28)
--- NOTE | 2018-07-11 22:28 | EMERGENCY ROOM VISIT NOTE ---
History Report prepared by Federica: Lindsay Pacheco Under the Supervision of: Dr. Carlo Pritchett M.D. First contact with patient: 18:51 Chief Complaint: BACK PAIN Stated Complaint: R BACK PAIN History of Present Illness The patient is a 43 year old female who presents to the Emergency Room with complaints of worsening right sided back pain since this morning. She rates her discomfort as a 7/10 in severity. Breathing and movement worsen her pain. She admits to a history of kidney stones and complains of increased urinary frequency, dysuria and urinary retention. She denies any gross hematuria. She denies any numbness or weakness in her legs or radiation of pain to her legs. She denies any recent fevers or vomiting. Source of History: patient Onset: this morning Position: back (right sided) Symptom Intensity: 7/10 Timing: worsening Modifying Factors (Worsening): breathing, movement Associated Symptoms: + urinary symptoms (+ increased urinary frequency and dysuria, - gross hematuria), No fevers, No vomiting, No weakness (in the legs), No numbness (in the legs) Review of Systems See HPI for pertinent positives & negatives. A total of 10 systems reviewed and were otherwise negative. Past Medical & Surgical Medical Problems: (1) Anxiety State Nos (2) Asthma, Unspecified (3) Diverticulitis (4) Diverticulitis (5) Ectopic (6) Emphysema Nec (7) Endometriosis (8) Fem Pelvic Periton Adh-Post-Op/Inf (9) Hx-Venous Thrombosis&Embolism (10) Int Hemorrhoid W/O Compl (11) Ovarian Cyst Nec/Nos (12) Personal History Of Urinary Calculi (13) Ventral Hernia Nos Surgical Problems: (1) H/O oophorectomy (2) H/O: hysterectomy (3) History of bowel resection Family History Diabetes mellitus FH: diverticulitis FH: heart disease Kidney disease Social History Smoking Status: Current Every Day Smoker Alcohol Use: occasionally Drug Use: none Marital Status: Housing Status: lives with significant other Occupation Status: employed Current/Historical Medications Scheduled B-Complex Vitamins (Vitamin B Complex), 1 TAB PO DAILY Cholecalciferol (Vitamin D), 1,000-2,000 UNITS PO DAILY Fexofenadine-Pseudoephedrine ([place]-D 24 Hour Allergy), 1 TAB PO DAILY Fish Oil ([place]-3), 1 CAP PO DAILY Melatonin (Melatonin), 10 MG PO HS Nitrofurantoin Monohyd Macrocr (Macrobid), 100 MG PO BID Ondasetron Odt (Zofran Odt), 4 MG SL Q6H Scheduled PRN Albuterol Sulfate (Proair Respiclick), 2 PUFFS INH QID PRN for SOB/Wheezing Diphenhydramine Hcl (Benadryl Allergy), 2 CAP PO UD PRN for ALLERGIC REACTION Ibuprofen (Advil), 600 MG PO Q6H PRN for Pain Oxycodone Ir (Roxicodone Ir), 5 MG PO Q4H PRN for Pain Allergies Coded Allergies: Piperacillin (Verified Allergy, Severe, SHORTNESS OF BREATH, 06/29/17) Tazobactam (Verified Allergy, Severe, SHORTNESS OF BREATH, 06/29/17) Morphine (Verified Adverse Reaction, Unknown, GI SYMPTOMS, 06/29/17) Physical Exam Vital Signs Date Time Temp Pulse Resp B/P (MAP) Pulse Ox O2 Delivery O2 Flow Rate FiO2 07/11/18 21:52 87 20 159/90 98 07/11/18 18:47 37.0 116 18 159/51 96 Room Air Physical Exam Constitutional: Vital signs reviewed. Eyes: Pupils are equal round reactive to light. Conjunctiva are noninjected. ENT: Pharynx is clear without erythema or exudate. Mucous membranes are moist. Neck supple without meningeal signs. Respiratory: Clear to auscultation bilaterally. Breath sounds are equal bilaterally. Cardiovascular: Tachycardic heart rate, regular rhythm. No rubs or gallops. GI: Soft, nondistended and nontender. Bowel sounds are present. Musculoskeletal: No peripheral edema. No lower extremity tenderness. Very mild right sided CVA tenderness. Pain in back with movement. Integumentary: No cyanosis. Neurological: The patient is awake and alert. No focal deficits. Psychiatric: Normal affect. Medical Decision & Procedures ER Provider Diagnostic Interpretation: Radiology results as stated below per my review and the radiologist's interpretation: RENAL ULTRASOUND CLINICAL HISTORY: Right flank pain. Evaluate for hydronephrosis. COMPARISON STUDY: CT of the abdomen and pelvis June 29, 2017. TECHNIQUE: Sonography of the kidneys and the urinary bladder was performed. FINDINGS: Exam is compromised by suboptimal penetration. Incidental note is made of fatty infiltration of the liver. There is no definite hydronephrosis. The right kidney measures 10 x 3.9 x 4.9 cm and the left measures 11.1 x 5 x 4.3 cm. Neither ureteral jet was identified. No bladder abnormality was identified. IMPRESSION: 1. Technically difficult exam but no definite hydronephrosis. 2. Fatty liver. Electronically signed by: Fabio Hennessy M.D. 07/11/2018 8:55 PM L-SPINE MIN 4 VIEWS ROUTINE CLINICAL HISTORY: Back pain. Evaluate for fracture. COMPARISON: CT of the abdomen and pelvis June 29, 2017. FINDINGS: Alignment of the lumbar spine is anatomic. Vertebral body heights are maintained. There is no fracture or suspicious lesion. Disc spaces are preserved. Sacroiliac joints are intact. Renal calculi are better depicted on the concurrently performed KUB. IMPRESSION: Unremarkable lumbar spine radiographs. Electronically signed by: Fabio Hennessy M.D. 07/11/2018 9:20 PM KUB CLINICAL HISTORY: Right-sided pain. Evaluate for stone. COMPARISON STUDY: CT of the abdomen and pelvis June 29, 2017. FINDINGS: There may be a punctate stone within the left kidney. A few small right renal calculi measure up to 5 mm. A left pelvic calcification represents a phlebolith. No ureteral calculi are identified. The bowel gas pattern is normal. IMPRESSION: 1. Bilateral nephrolithiasis. 2. No ureteral calculi identified. Electronically signed by: Fabio Hennessy M.D. 07/11/2018 9:22 PM Laboratory Results 07/11/18 19:45 Red Blood Count 4.64, Mean Corpuscular Volume 89.2, Mean Corpuscular Hemoglobin 31.0, Mean Corpuscular Hemoglobin Concent 34.8, Mean Platelet Volume 11.7, Neutrophils (%) (Auto) 70.8, Lymphocytes (%) (Auto) 22.2, Monocytes (%) (Auto) 4.6, Eosinophils (%) (Auto) 1.8, Basophils (%) (Auto) 0.3, Neutrophils # (Auto) 8.09, Lymphocytes # (Auto) 2.53, Monocytes # (Auto) 0.52, Eosinophils # (Auto) 0.21, Basophils # (Auto) 0.03 07/11/18 19:45 Test 07/11/18 19:40 07/11/18 19:45 Urine Color YELLOW Urine Appearance CLEAR (CLEAR) Urine pH 5.0 (4.5-7.5) Urine Specific [place] 1.016 (1.000-1.030) Urine Protein NEG (NEG) Urine Glucose (UA) NEG (NEG) Urine Ketones NEG (NEG) Urine Occult Blood 1+ (NEG) Urine Nitrite NEG (NEG) Urine Bilirubin NEG (NEG) Urine Urobilinogen NEG (NEG) Urine Leukocyte Esterase SMALL (NEG) Urine WBC (Auto) 5-10 /hpf (0-5) Urine RBC (Auto) 5-10 /hpf (0-4) Urine Hyaline Casts (Auto) 1-5 /lpf (0-5) Urine Epithelial Cells (Auto) 20-30 /lpf (0-5) Urine Bacteria (Auto) NEG (NEG) White Blood Count 11.41 K/uL (4.8-10.8) Red Blood Count 4.64 M/uL (4.2-5.4) Hemoglobin 14.4 g/dL (12.0-16.0) Hematocrit 41.4 % (37-47) Mean Corpuscular Volume 89.2 fL (80-100) Mean Corpuscular Hemoglobin 31.0 pg (25-34) Mean Corpuscular Hemoglobin Concent 34.8 g/dl (32-36) Platelet Count 197 K/uL (130-400) Mean Platelet Volume 11.7 fL (7.4-10.4) Neutrophils (%) (Auto) 70.8 % Lymphocytes (%) (Auto) 22.2 % Monocytes (%) (Auto) 4.6 % Eosinophils (%) (Auto) 1.8 % Basophils (%) (Auto) 0.3 % Neutrophils # (Auto) 8.09 K/uL (1.4-6.5) Lymphocytes # (Auto) 2.53 K/uL (1.2-3.4) Monocytes # (Auto) 0.52 K/uL (0.11-0.59) Eosinophils # (Auto) 0.21 K/uL (0-0.5) Basophils # (Auto) 0.03 K/uL (0-0.2) RDW Standard Deviation 43.9 fL (36.4-46.3) RDW Coefficient of Variation 13.5 % (11.5-14.5) Immature Granulocyte % (Auto) 0.3 % Immature Granulocyte # (Auto) 0.03 K/uL (0.00-0.02) Anion Gap 9.0 mmol/L (3-11) Est Creatinine Clear Calc Drug Dose 88.0 ml/min Estimated GFR () 78.2 Estimated GFR (Non- 67.5 BUN/Creatinine Ratio 13.9 (10-20) Calcium Level 8.7 mg/dl (8.5-10.1) Total Bilirubin 0.3 mg/dl (0.2-1) Direct Bilirubin 0.1 mg/dl (0-0.2) Aspartate Amino Transf (AST/SGOT) 17 U/L (15-37) Alanine Aminotransferase (ALT/SGPT) 34 U/L (12-78) Alkaline Phosphatase 72 U/L (45-117) Total Protein 7.5 gm/dl (6.4-8.2) Albumin 3.6 gm/dl (3.4-5.0) Lipase 91 U/L (73-393) Laboratory results as reviewed by me. Medications Administered Medications (Trade) Dose Ordered Sig/Alison Route Start Time Stop Time Status Last Admin Dose Admin Ondansetron HCl (Zofran Inj) 4 mg NOW STAT IV 07/11/18 19:03 07/11/18 19:06 DC 07/11/18 19:51 4 MG Fentanyl Citrate (Fentanyl Inj) 50 mcg NOW STAT IV 07/11/18 19:03 07/11/18 19:06 DC 07/11/18 19:52 50 MCG Sodium Chloride 1,000 ml @ 999 mls/hr Q1H1M STAT IV 07/11/18 19:03 07/11/18 20:03 DC 07/11/18 19:50 999 MLS/HR Ketorolac Tromethamine (Toradol Inj) 10 mg NOW STAT IV 07/11/18 19:03 07/11/18 19:06 DC 07/11/18 19:53 10 MG Oxycodone HCl (Roxicodone Immediate Rel 5MG Home Pack) 1 homepack UD ONCE PO 07/11/18 21:15 07/11/18 21:16 DC 07/11/18 21:43 1 HOMEPACK Ondansetron HCl (ZOFRAN ODT 4MG Home Pack) 1 homepack UD ONCE PO 07/11/18 21:15 07/11/18 21:16 DC 07/11/18 21:43 1 [facility] ED Course 1852: The patient was evaluated in room C5. A complete history and physical exam was performed. 1902: Toradol 10 mg IV, NSS 1000 ml @ 999 mls/hr IV, Fentanyl Citrate 50 mcg IV , Zofran 4 mg IV. 2099: I reevaluated the patient. She states she is feeling better. Her pain is localized to her right lower pain. 2114: Zofran 4 mg 1 homepack PO, Oxycodone 5 mg 1 homepack PO. 2134: I reevaluated the patient. She is feeling well and is ready to go home. I discussed her test results and discharge instructions and she verbalized complete understanding and agreement. Medical Decision This is a 43-year-old female presents with right flank pain. Differential diagnosis includes ureterolithiasis, hydronephrosis, intervertebral disc disease , strain, UTI, pyelonephritis. I did perform a limited focused review of portions of the patient's old chart on the electronic medical record. The patient was seen here for abdominal pain 1 year ago. She had a CT of abdomen/ pelvis that showed 3 right sided kidney stones, diverticulosis and ventral hernias. I did evaluate the patient as noted above. Patient has right-sided flank pain. It seems to be worse when she moves. She does have a prior history of kidney stones. IV access was established. I did order and personally review the patient's urine analysis as described above. I did order and review the patient 's blood work as noted in the electronic medical record. I did order an ultrasound of her kidneys as well as x-rays of her back and abdomen. I did review the images myself as well as the radiology report as described above. Her ultrasound was unremarkable. Her x-rays did not show any acute abnormality. She does have bilateral nephrolithiasis. I did treat patient with IV Toradol, Zofran and fentanyl. On reassessment the patient is feeling much better. She does state that her pain now is localized to the right lower back. It is worse when she moves around and reproducible on palpation. Her symptoms seem likely musculoskeletal in nature. I did recommend close follow- up with her doctor. She was discharged with a prescription for oxycodone and Zofran. She was given precautions regarding these medications. She was also given a prescription for Macrobid. She was discharged in good condition. [place] [facility] Monitoring Program Search Results: patient reviewed within database, no issues identified Medication Reconcilliation Current Medication List: was personally reviewed by me Blood Pressure Screening Patient's blood pressure: Elevated blood pressure Blood pressure disposition: Referred to PCP Impression Primary Impression: Right flank pain Additional Impression: UTI (lower urinary tract infection) Scribe Attestation The scribe's documentation has been prepared under my direct and personally reviewed by me in its entirety. I confirm that the note above accurately reflects all work, treatment, procedures, and medical decision making performed by me. Departure Information Dispostion Home / Self-Care Prescriptions Nitrofurantoin Monohyd Macrocr (Macrobid) 100 Mg Cap 100 MG PO BID, #14 CAP Prov: Carlo Pritchett M.D. 07/11/18 Ondasetron Odt (ZOFRAN ODT) 4 Mg Tab 4 MG SL Q6H for Nausea, #6 TAB Prov: Carlo Pritchett M.D. 07/11/18 Oxycodone Ir (Roxicodone Ir) 5 Mg Tab 5 MG PO Q4H Y for Pain, #14 TAB Prov: Carlo Pritchett M.D. 07/11/18 Referrals Jenna Romero M.D. (MEDICAL) (PCP) Patient Instructions ED Flank Pain Uncertain Cause, My [facility] Additional Instructions You have been examined and treated today on an emergency basis only. This is not a substitute for, or an effort to provide, complete comprehensive medical care. It is impossible to recognize and treat all injuries or illnesses in a single emergency department visit. It is therefore important that you follow up closely with your physician. Call as soon as possible for an appointment. Return for worsening symptoms or if you develop fever, vomiting, abdominal pain , loss of control of your bowel or bladder, numbness or weakness to your legs, numbness to your private area, difficulty urinating, or any other concerning symptoms. Problem Qualifiers
== END 2018-07-11 21:55 | disposition home or self-care (01) ==
LOC: C.EDB 18:45 → C.EDC 21:55
DX: R10.9 Unspecified abdominal pain (principal); N39.0 Urinary tract infection, site not specified; N20.0 Calculus of kidney; R03.0 Elevated blood-pressure reading, without diagnosis of hypertension; F17.200 Nicotine dependence, unspecified, uncomplicated; Z87.442 Personal history of urinary calculi; Z88.1 Allergy status to other antibiotic agents; Z88.6 Allergy status to analgesic agent

== ENCOUNTER 2020-01-03 19:03 | Inpatient (IN) ==
[2020-01-03] MEDS ORDERED: SODIUM CHLORIDE 0.9% 1000ML 1,000 ML IV ONE (19:13)
[2020-01-03] MEDS ORDERED: ONDANSETRON INJ 2 MG/ML 2 ML VIAL IV STA (19:13)
[2020-01-03] MEDS ORDERED: HYDROmorphone INJ 1 MG/ML SYRINGE IV STA ×2 (19:13→21:31)
[2020-01-03 19:47] LABS: Basophils # (auto) 0.03 K/uL (0-0.2); Basophils % (auto) 0.3 %; Eosinophils # (auto) 0.19 K/uL (0-0.5); Eosinophils % (auto) 1.7 %; Hematocrit (blood only) 40.1 % (37-47); Hemoglobin 14.1 g/dL (12.0-16.0); Immature Granulocytes # (auto) 0.02 K/uL (0.00-0.02); Immature Granulocytes % (auto) 0.2 %; Lymphocytes # (auto) 3.31 K/uL (1.2-3.4); Lymphocytes % (auto) 30.1 %; Mean Corpuscular Hemoglobin 31.3 pg (25-34); Mean Corpuscular Hgb Conc 35.2 g/dL (32-36); Mean Corpuscular Volume 88.9 fL (80-100); Mean Platelet Volume 11.2 fL (7.4-10.4); Monocytes # (auto) 0.76 K/uL (0.11-0.59); Monocytes % (auto) 6.9 %; Neutrophils # (auto) 6.68 K/uL (1.4-6.5); Neutrophils % (auto) 60.8 %; Platelet Count 215 K/uL (130-400); RDW Coefficient of Variation 13.3 % (11.5-14.5); RDW Standard Deviation 43.4 fL (36.4-46.3); Red Blood Count 4.51 M/uL (4.2-5.4); White Blood Count 10.99 K/uL (4.8-10.8)
[2020-01-03 20:11] LABS: Alanine Aminotransferase 19 U/L (12-78); Albumin Level 3.6 gm/dl (3.4-5.0); Aspartate Aminotransferase 11 U/L (15-37); Bilirubin Direct < 0.1 mg/dl (0-0.2); Blood Urea Nitrogen 26 mg/dl (7-18); Calcium 8.8 mg/dl (8.5-10.1); Carbon Dioxide 26 mmol/L (21-32); Chloride 109 mmol/L (98-107); Creatinine Clr Calc Pharmacy 88.7 ml/min; Est GFR (Non-African American) 76.8; Glucose 92 mg/dl (70-99); Lipase 72 U/L (73-393); Potassium 3.7 mmol/L (3.5-5.1); Sodium 141 mmol/L (136-145)
[2020-01-03 20:13] LABS: Appearance Urine Clear (Clear); Bacteria Urine Automated 1+ (Negative); Bilirubin Urine Negative (Negative); Blood Urine 1+ (Negative); Color Urine Yellow; Epithelial Cell Urine Auto >30 /lpf (0-5); Glucose Urine UA Negative (Negative); Ketones Urine Negative (Negative); Leukocyte Esterase Urine Trace (Negative); Nitrite Urine Negative (Negative); Protein Urine Negative (Negative); Specific Gravity Urine 1.025 (1.000-1.030); Urobilinogen Urine Negative (Negative)
[2020-01-03 20:14] LABS: Alkaline Phosphatase 74 U/L (45-117); Bilirubin,Total 0.3 mg/dl (0.2-1); Total Protein 7.3 gm/dl (6.4-8.2)
[2020-01-03] MEDS ORDERED: IOVERSOL 100ml IV PRN (20:27)
--- NOTE | 2020-01-03 20:45 | CT Scan Report ---
CT SCAN OF THE ABDOMEN AND PELVIS WITH IV CONTRAST CLINICAL HISTORY: Left lower quadrant abdominal pain. COMPARISON STUDY: Abdominal CT dated 06/29/2017. TECHNIQUE: Following the IV administration of 90 cc of Optiray 320, CT scan of the abdomen and pelvi s is performed from the lung bases to the proximal femora. Images are reviewed in the axial, sagittal , and coronal planes. IV contrast was administered without complication. A dose lowering technique wa s utilized adhering to the principles of ALARA. CT DOSE: 1381.96 mGy.cm FINDINGS: Lung bases: The heart is normal in size and without pericardial effusion. The lung bases are clear. Liver: The contrast-enhanced liver is enlarged, measuring 19.2 cm in length. The liver demonstrates d iffusely diminished attenuation consistent with hepatic steatosis. There is no intrahepatic biliary d uctal dilatation. The hepatic veins and portal veins are patent. Gallbladder: Surgically absent noting clips in the gallbladder fossa. Spleen: Normal in size and attenuation. Pancreas: Unremarkable. Adrenal glands: Unremarkable. Kidneys: The contrast enhanced kidneys are normal in size and without hydronephrosis. The kidneys enh ance symmetrically. There is a 6 cm nonobstructing calculus in the lower pole of the right kidney. Pu nctate nonobstructing calculus is seen in the left upper pole. Abdominal vasculature: The abdominal aorta is normal in course and caliber noting mild atheroscleroti c calcification. Bowel: There is a large complex ventral hernia which contains loops of small bowel as well as a segme nt of the transverse colon. An additional ventral hernia in the midline pelvis contains small bowel l oops. The upstream small bowel loops are mildly distended and fluid-filled measuring up to 3.1 cm in diameter. There is a transition points suggested within the large ventral hernia on image #285. Low-g rade small bowel obstruction is suggested. The small bowel loops exiting the large ventral hernia are decompressed, as are the bowel loops in the ventral pelvic hernia. There is mild stranding around th e small bowel loops within the large ventral hernia. No pneumatosis intestinalis or portal venous gas is seen. There is postoperative change from sigmoid colon resection with colocolonic anastomosis. Th ere is moderate diverticulosis of the remaining colon without CT evidence of acute diverticulitis. Th ere is a small duodenal diverticulum. The appendix is well-visualized and normal. Peritoneum: There is no intraperitoneal free air or abdominal ascites. There is evidence of previous ventral hernia repair in the upper abdomen. Lymphadenopathy: None. Pelvic viscera: The bladder is normal as visualized. The uterus is surgically absent. Nabothian cysts are suggested in the cervix. No adnexal lesion is seen. Skeletal structures: A bone island is incidentally noted in the left ischium. No lytic or blastic les ions are seen. Sclerotic change is noted in the sacroiliac joints. IMPRESSION: 1. Findings are consistent with a low-grade small bowel obstruction. The transition point appears to be located within a large complex ventral hernia which contains both small bowel loops and colon. 2. An additional large ventral hernia in the pelvis contains decompressed small bowel loops. 3. There is postoperative change from sigmoid colon resection with colocolonic anastomosis. 4. There is moderate diverticulosis of the remaining colon without CT evidence of acute diverticuliti s. 5. Hepatomegaly and hepatic steatosis. 6. Bilateral nephrolithiasis. 7. Additional findings as above. ACT 112: Negative or not required by law. Electronically signed by: Santnaa Kumar M.D. 01/03/2020 8:44 PM
[2020-01-03] MEDS ORDERED: SODIUM CHLORIDE 0.9% 1000ML 1,000 ML IV SCH (22:00)
--- NOTE | 2020-01-03 23:22 | Emergency Department Note ---
Entered by Kavita Alberts acting as a scribe for Syed Roldan History of Present Illness General Chief complaint: Abdominal Pain Stated complaint: ABDOMINAL PAIN Time Seen by Provider: 01/03/20 19:09 Source: patient History of Present Illness Provider complaint: abdominal pain Onset (ago): day(s) 1 Location: abdomen Radiation: abdomen Maximum Pain Intensity: 5 Quality: + other (abdominal pain) Relieved By: not by medication Associated symptoms: + nausea/vomiting (Positive nausea; Negative vomiting;) and + other (Negative dysuria; Negative erythruria; Negative vaginal bleeding; Negative vaginal discharge; ) Treatments prior to arrival: other (Ibuprofen; Oxycodone) The patient, who is a 44 year old female with a medical history of diverticulitis, constipation, and abdominal pain, presents to the Emergency Room with complaints of abdominal pain that started yesterday. The patient locates this pain in her left lower quadrant that radiates slightly. The patient states that she is nauseous but has not vomited. The patient denies dysuria. erythruria, vaginal bleeding or vaginal discharge. The patient denies and reports that she had a complete hysterectomy. The patient's mentions that the patient is suppose to get an abdominal wall reconstruction surgery soon but needs a CAT scan for further determination. The patient states that she had Ibuprofen and oxycodone that did not help her symptoms. Home Medications Home Medications Medication Instructions Recorded Confirmed Type albuterol sulfate 2.5 mg INHALATION Q4 PRN 01/03/20 01/03/20 History albuterol sulfate [ProAir HFA] 2 puff INHALATION Q4 PRN 01/03/20 01/03/20 History bupropion HCl 300 mg PO DAILY 01/03/20 01/03/20 History dicyclomine 10 mg PO QID PRN 01/03/20 01/03/20 History diphenhydramine HCl [Benadryl] 50 mg PO HS PRN 01/03/20 01/03/20 History estradiol [Estrace] 2 mg PO DAILY 01/03/20 01/03/20 History fluoxetine [Prozac] 40 mg PO DAILY 01/03/20 01/03/20 History ibuprofen [Motrin IB] 200 mg PO Q6H PRN 01/03/20 01/03/20 History lorazepam [Ativan] 0.25 mg PO TID PRN 01/03/20 01/03/20 History losartan [Cozaar] 50 mg PO DAILY 01/03/20 01/03/20 History melatonin 10 mg PO HS PRN 01/03/20 01/03/20 History montelukast [Singulair] 10 mg PO DAILY 01/03/20 01/03/20 History omeprazole 20 mg PO BID 01/03/20 01/03/20 History ondansetron 4 mg PO Q6H PRN 01/03/20 01/03/20 History polyethylene glycol 3350 [Miralax] 17 g PO DAILY PRN 01/03/20 01/03/20 History vitamin B complex 1 tab PO DAILY 01/03/20 01/03/20 History Allergies Allergy/AdvReac Type Severity Reaction Status Date / Time piperacillin Allergy Severe SHORTNESS Verified 01/03/20 20:09 OF BREATH tazobactam Allergy Severe SHORTNESS Verified 01/03/20 20:09 OF BREATH morphine AdvReac Unknown GI SYMPTOMS Verified 01/03/20 20:09 Past Med/Surg History Medical History Abdominal pain (Acute) Abdominal pain (Acute) Abdominal pain (Acute) Abdominal pain (Acute) Abdominal pain (Acute) Abdominal pain (Acute) Abdominal pain (Acute) Abdominal pain (Acute) Abdominal pain, left lower quadrant (Acute) Abdominal pain, left lower quadrant (Acute) Constipation (Acute) Diarrhea (Acute) Diverticulitis Diverticulitis (Chronic) Diverticulitis (Acute) Diverticulitis (Acute) Diverticulitis (Acute) Diverticulitis (Acute) Diverticulitis (Acute) Diverticulitis (Acute) Diverticulitis (Chronic) Drainage from wound (Acute) Ectopic (Resolved) Endometriosis (Chronic) Epigastric abdominal pain (Acute) Fibroid (Acute) Intractable abdominal pain (Acute) Intractable abdominal pain (Acute) LUQ abdominal pain (Acute) Ovarian cyst (Acute) Ovarian cyst (Acute) Postoperative pain (Acute) Regional enteritis of small bowel (Acute) Right flank pain (Acute) Spasm of back muscles (Acute) UTI (lower urinary tract infection) (Acute) UTI (urinary tract infection) (Acute) Vomiting (Acute) Surgical History H/O: hysterectomy (Resolved) History of bowel resection (Resolved) Social History Preferred Language: And[place] Feels Safe at Home: Yes Smoking Status: Current every day smoker Review of Systems See HPI for pertinent positives & negatives. and A total of 10 systems reviewed and were otherwise negative Physical Exam Vital Signs Vital Signs - 24 hr 01/03/20 19:05 01/03/20 20:55 01/03/20 22:20 Temperature 36.5 C Temperature Source Oral Pulse Rate 81 Pulse Rate [Right] 80 74 Pulse Rhythm [Right] Regular Regular Pulse Strength [Right] Normal Normal Respiratory Rate 18 16 18 Respiratory Effort / Characteristics Non-Labored Non-Labored Spontaneous Non-Labored Spontaneous Respiratory Depth Normal Normal Normal Respiratory Pattern Regular Blood Pressure 178/95 H Blood Pressure [Right Arm] 153/103 H 141/88 H Blood Pressure Mean 122 Blood Pressure Mean [Right Arm] 119 105 Blood Pressure Position [Right Arm] Lying Sitting Pulse Oximetry 99 100 97 Oxygen Delivery Method Room Air Room Air Room Air Sepsis Recent Fever Within 48 Hours No Sepsis Action Taken by Nursing No Action Required GENERAL: She is oriented to person, place, and time. She appears well-developed and well-nourished. She does not appear distressed. HENT: Exam performed. Head: Normocephalic and atraumatic. Right Ear: External ear normal. No mastoid tenderness. Left Ear: External ear normal. No mastoid tenderness. Mouth/Throat: The oropharynx is clear and moist. No trismus in the jaw. No dental abscesses or uvula swelling. No oropharyngeal exudate or tonsillar abscesses. EYES: Conjunctivae and EOM are normal. Pupils are equal, round, and reactive to light. Right eye exhibits no discharge. Left eye exhibits no discharge. No scleral icterus. NECK: Normal range of motion. Neck supple. No JVD present. No spinous process tenderness present. No carotid bruit present. No rigidity. No tracheal deviation and normal range of motion present. No Brudzinski's sign and no Kernig's sign noted. CV: Normal rate, regular rhythm, normal heart sounds and intact distal pulses. T here is no peripheral edema. Palpable radial pulses bue. PULM/CHEST: Effort normal and breath sounds normal. No respiratory distress. No stridor. She has no wheezes. She has no rales. Chest Wall: She exhibits no tenderness. ABD: Morbidly obese. The abdomen is soft. Bowel sounds are normal. She has no distension. No mass is present. She had pain with palpation to the lower left quadrant. There is no rebound, no guarding, no Brown's sign and no tenderness at McBurney's point. Rovsig negative MUSC/SKEL: Normal range of motion. There is no peripheral edema, tenderness or deformity. LYMPH: No cervical adenopathy. NEURO: She is alert and oriented to person, place, and time. She has normal strength. No cranial nerve deficit or sensory deficit. Coordination and gait normal. GCS eye subscore is 4. GCS verbal subscore is 5. GCS motor subscore is 6. cerbellar tests wnl. SKIN: Skin is warm and dry. She is not diaphoretic. PSYCH: She has a normal mood and affect. Her behavior is normal. Judgment and thought content normal. Course Course 1908: Past medical records reviewed. The patient was prescribed oxycodone IR and Zofran. The patient had a history of endoscopy, fibroids, ectopic and UTIs. The patient was evaluated in room B4. A complete history and physical exam was performed. 2048: Labs within normal limits. CT shows small bowel obstruction. I paged general surgery and reviewed the patient's case with Dr. Fitzgerald, General Surgery. He states that he is preoccupied with a case and will be down soon to see the patient. 2053: I updated the patient on her CAT SCAN and stated that I have informed General Surgery on her current condition. The patient states that she is OK with me further discussing her case with Dr. Fitzgerald. I informed the patient that Dr. Fitzgerald is in surgery but will be down shortly. I discussed with her the possibility of admission and transferred. The patient informs that she will need to be transferred to [facility] due to past successful transfers to that facility. No pain status post 1 mg of Dilaudid. The patient reports no nausea after Zofran. 2152: I discussed with Dr. Fitzgerald. He advises that the patient be on conservative management at this time. He states that he will be seasonal sales associate for further management. He suggests that patient be admitted to internal medicine at this time. 2199: I reviewed the patient's case with Dr. Howe [facility]. He will evaluate the patient for further management. Consultations Consultation #1: I paged general surgery and reviewed the patient's case with Dr. Fitzgerald, General Surgery. He states that he is preoccupied with a case and will be down soon to see the patient. Time: 20:49 Consultation #2: I discussed with Dr. Fitzgerald. He advises that the patient be on conservative management at this time. He states that he will be seasonal sales associate for further management. He suggests that patient be admitted to internal medicine at this time. Time: 21:53 Consultation #3: I reviewed the patient's case with Dr. Howe, [facility]. He will evaluate the patient for further management. Time: 22:00 Administered Medications Sodium Chloride (Nss 1000ml) 1,000 mls @ 75 mls/hr IV .[id number] CLIF Stop: 02/02/20 21:59 Last Admin: 01/03/20 22:13 Dose: 75 mls/hr Documented by: [id number] Ioversol (Optiray 320 100ml) 90 ml IV ONCE PRN PRN Reason: Interaction Checking Stop: 01/07/20 20:26 Last Admin: 01/03/20 20:28 Dose: 90 ml Documented by: [id number] Discontinued Medications Hydromorphone HCl (Dilaudid) 1 mg IV NOW STA Stop: 01/03/20 19:14 Last Admin: 01/03/20 19:23 Dose: 1 mg Documented by: [id number] Hydromorphone HCl (Dilaudid) 1 mg IV NOW STA Stop: 01/03/20 21:32 Last Admin: 01/03/20 21:34 Dose: 1 mg Documented by: [id number] Sodium Chloride (Nss 1000ml) 1,000 mls @ 999 mls/hr IV .Q1H1M ONE Stop: 01/03/20 20:13 Last Infusion: 01/03/20 20:26 Dose: 0 mls/hr Documented by: [id number] Admin: 01/03/20 19:22 Dose: 999 mls/hr Documented by: [id number] Ondansetron HCl (Zofran) 4 mg IV NOW STA Stop: 01/03/20 19:14 Last Admin: 01/03/20 19:23 Dose: 4 mg Documented by: [id number] Medical Decision Making Medical Records Attestation: I reviewed the patient's medical records. Home Medications Current Medication List: was personally reviewed by me Laboratory Data Attestation: I reviewed the patient's lab results. Result diagrams: 01/03/20 19:19 01/03/20 19:19 Lab Results 01/03/20 01/03/20 01/03/20 Range/Units 19:19 19:19 19:45 WBC 10.99 H (4.8-10.8) K/uL RBC 4.51 (4.2-5.4) M/uL Hgb 14.1 (12.0-16.0) g/dL Hct 40.1 (37-47) % MCV 88.9 (80-100) fL MCH 31.3 (25-34) pg MCHC 35.2 (32-36) g/dL RDW Std Deviation 43.4 (36.4-46.3) fL RDW Coeff of Charles 13.3 (11.5-14.5) % Plt Count 215 (130-400) K/uL MPV 11.2 H (7.4-10.4) fL Immature Gran % (Auto) 0.2 % Neut % (Auto) 60.8 % Lymph % (Auto) 30.1 % Fisher % (Auto) 6.9 % Eos % (Auto) 1.7 % Baso % (Auto) 0.3 % Immature Gran # (Auto) 0.02 (0.00-0.02) K/uL Neut # (Auto) 6.68 H (1.4-6.5) K/uL Lymph # (Auto) 3.31 (1.2-3.4) K/uL Fisher # (Auto) 0.76 H (0.11-0.59) K/uL Eos # (Auto) 0.19 (0-0.5) K/uL Baso # (Auto) 0.03 (0-0.2) K/uL Sodium 141 (136-145) mmol/L Potassium 3.7 (3.5-5.1) mmol/L Chloride 109 H (98-107) mmol/L Carbon Dioxide 26 (21-32) mmol/L Anion Gap 5.0 (3-11) BUN 26 H (7-18) mg/dl Creatinine 0.92 (0.6-1.2) mg/dl Est Cr Clr Drug Dosing 88.7 ml/min Est GFR ( Amer) 89.0 Est GFR (Non-Af Amer) 76.8 BUN/Creatinine Ratio 28.0 H (10-20) Glucose 92 (70-99) mg/dl Calcium 8.8 (8.5-10.1) mg/dl Total Bilirubin 0.3 (0.2-1) mg/dl Direct Bilirubin < 0.1 (0-0.2) mg/dl AST 11 L (15-37) U/L ALT 19 (12-78) U/L Alkaline Phosphatase 74 (45-117) U/L Total Protein 7.3 (6.4-8.2) gm/dl Albumin 3.6 (3.4-5.0) gm/dl Lipase 72 L (73-393) U/L Urine Color Yellow Urine Appearance Clear (Clear) Urine pH 5.0 (4.5-7.5) Ur Specific Kathleen 1.025 (1.000-1.030) Urine Protein Negative (Negative) Urine Glucose (UA) Negative (Negative) Urine Ketones Negative (Negative) Urine Blood 1+ H (Negative) Urine Nitrite Negative (Negative) Urine Bilirubin Negative (Negative) Urine Urobilinogen Negative (Negative) Ur Leukocyte Esterase Trace H (Negative) Urine WBC (Auto) 10-30 H (0-5) /hpf Urine RBC (Auto) 5-10 H (0-4) /hpf U Hyaline Cast (Auto) 1-5 (0-5) /lpf U Epithel Cells (Auto) >30 H (0-5) /lpf Urine Bacteria (Auto) 1+ H (Negative) Imaging Data Radiologist's Impression: Radiology results as stated below per my review and the radiologist's interpretation: CT SCAN OF THE ABDOMEN AND PELVIS WITH IV CONTRAST CLINICAL HISTORY: Left lower quadrant abdominal pain. COMPARISON STUDY: Abdominal CT dated 06/29/2017. TECHNIQUE: Following the IV administration of 90 cc of Optiray 320, CT scan of the abdomen and pelvis is performed from the lung bases to the proximal femora. Images are reviewed in the axial, sagittal, and coronal planes. IV contrast was administered without complication. A dose lowering technique was utilized adhering to the principles of ALARA. CT DOSE: 1381.96 mGy.cm FINDINGS: Lung bases: The heart is normal in size and without pericardial effusion. The lung bases are clear. Liver: The contrast-enhanced liver is enlarged, measuring 19.2 cm in length. The liver demonstrates diffusely diminished attenuation consistent with hepatic steatosis. There is no intrahepatic biliary ductal dilatation. The hepatic veins and portal veins are patent. Gallbladder: Surgically absent noting clips in the gallbladder fossa. Spleen: Normal in size and attenuation. Pancreas: Unremarkable. Adrenal glands: Unremarkable. Kidneys: The contrast enhanced kidneys are normal in size and without hydronephrosis. The kidneys enhance symmetrically. There is a 6 cm nonobstructing calculus in the lower pole of the right kidney. Punctate nonobstructing calculus is seen in the left upper pole. Abdominal vasculature: The abdominal aorta is normal in course and caliber noting mild atherosclerotic calcification. Bowel: There is a large complex ventral hernia which contains loops of small bowel as well as a segment of the transverse colon. An additional ventral hernia in the midline pelvis contains small bowel loops. The upstream small bowel loops are mildly distended and fluid-filled measuring up to 3.1 cm in diameter. There is a transition points suggested within the large ventral hernia on image #285. Low-grade small bowel obstruction is suggested. The small bowel loops exiting the large ventral hernia are decompressed, as are the bowel loops in the ventral pelvic hernia. There is mild stranding around the small bowel loops within the large ventral hernia. No pneumatosis intestinalis or portal venous gas is seen. There is postoperative change from sigmoid colon resection with colocolonic anastomosis. There is moderate diverticulosis of the remaining colon without CT evidence of acute diverticulitis. There is a small duodenal diverticulum. The appendix is well-visualized and normal. Peritoneum: There is no intraperitoneal free air or abdominal ascites. There is evidence of previous ventral hernia repair in the upper abdomen. Lymphadenopathy: None. Pelvic viscera: The bladder is normal as visualized. The uterus is surgically absent. Nabothian cysts are suggested in the cervix. No adnexal lesion is seen. Skeletal structures: A bone island is incidentally noted in the left ischium. No lytic or blastic lesions are seen. Sclerotic change is noted in the sacroiliac joints. IMPRESSION: 1. Findings are consistent with a low-grade small bowel obstruction. The transition point appears to be located within a large complex ventral hernia which contains both small bowel loops and colon. 2. An additional large ventral hernia in the pelvis contains decompressed small bowel loops. 3. There is postoperative change from sigmoid colon resection with colocolonic anastomosis. 4. There is moderate diverticulosis of the remaining colon without CT evidence of acute diverticulitis. 5. Hepatomegaly and hepatic steatosis. 6. Bilateral nephrolithiasis. 7. Additional findings as above. ACT 112: Negative or not required by law. Electronically signed by: Santana Kumar M.D. 01/03/2020 8:44 PM Blood Pressure Blood Pressure Findings: Elevated blood pressure Blood Pressure Disposition: further management by hospitalist [facility] Narrative 1908: Past medical records reviewed. The patient was prescribed oxycodone IR and Zofran. The patient had a history of endoscopy, fibroids, ectopic and UTIs. The patient was evaluated in room B4. A complete history and physical exam was performed. 2048: Labs within normal limits. CT shows small bowel obstruction. I paged general surgery and reviewed the patient's case with Dr. Fitzgerald, General Surgery. He states that he is preoccupied with a case and will be down soon to see the patient. 2053: I updated the patient on her CAT SCAN and stated that I have informed General Surgery on her current condition. The patient states that she is OK with me further discussing her case with Dr. Fitzgerald. I informed the patient that Dr. Fitzgerald is in surgery but will be down shortly. I discussed with her the possibility of admission and transferred. The patient informs that she will need to be transferred to [place] due to past successful transfers to that facility. No pain status post 1 mg of Dilaudid. The patient reports no nausea after Zofran. 2152: I discussed with Dr. Fitzgerald. He advises that the patient be on conservative management at this time. He states that he will be seasonal sales associate for further management. He suggests that patient be admitted to internal medicine at this time. 2199: I reviewed the patient's case with Dr. Howe, [facility] Hospital[facility]. He will evaluate the patient for further management. Impression & Plan SBO (small bowel obstruction) Discharge Plan Visit Data Chief Complaint: Abdominal Pain Stated Complaint: ABDOMINAL PAIN ED Provider: Syed Roldan Discharge Problem: SBO (small bowel obstruction) Forms Stand Alone Forms: Call Back Authorization, [facility] Prescriptions Prescriptions: No Action losartan [Cozaar] 50 mg tablet 50 mg PO DAILY RF: 0 fluoxetine [Prozac] 40 mg capsule 40 mg PO DAILY RF: 0 albuterol sulfate 2.5 mg /3 mL (0.083 %) Solution For Nebulization 2.5 mg INHALATION Q4 PRN (Reason: Shortness Of Breath Or Wheezing) RF: 0 polyethylene glycol 3350 [Miralax] 17 gram Powder In Packet 17 g PO DAILY PRN (Reason: Constipation) RF: 0 lorazepam [Ativan] 0.5 mg tablet 0.25 mg PO TID PRN (Reason: Anxiety) RF: 0 diphenhydramine HCl [Benadryl] 25 mg Capsule 50 mg PO HS PRN (Reason: Pain) RF: 0 ibuprofen [Motrin IB] 200 mg Tablet 200 mg PO Q6H PRN (Reason: Pain) RF: 0 omeprazole 20 mg capsule,delayed release(DR/EC) 20 mg PO BID RF: 0 estradiol [Estrace] 2 mg tablet 2 mg PO DAILY RF: 0 vitamin B complex Tablet 1 tab PO DAILY RF: 0 montelukast [Singulair] 10 mg tablet 10 mg PO DAILY RF: 0 albuterol sulfate [ProAir HFA] 90 mcg/actuation Hfa Aerosol Inhaler 2 puff INHALATION Q4 PRN (Reason: Shortness Of Breath Or Wheezing) RF: 0 dicyclomine 10 mg capsule 10 mg PO QID PRN (Reason: adb pain & cramping) RF: 0 melatonin 5 mg Tablet 10 mg PO HS PRN (Reason: Sleep) RF: 0 ondansetron 4 mg Film 4 mg PO Q6H PRN (Reason: Nausea) RF: 0 bupropion HCl 300 mg tablet extended release 24 hr 300 mg PO DAILY RF: 0 The scribe's documentation has been prepared under my direction and personally reviewed by me in its entirety. I confirm that the note above accurately reflects all work, treatment, procedures, and medical decision making performed by me.
[2020-01-04] MEDS ORDERED: POLYETHYLENE (MIRALAX) 17 GM PACK PO PRN (00:06)
[2020-01-04] MEDS ORDERED: LORazepam 0.5 MG TAB PO PRN (00:06)
[2020-01-04] MEDS ORDERED: DICYCLOMINE HCL 10 MG CAP PO PRN (00:06)
[2020-01-04] MEDS ORDERED: ALBUTEROL 0.083% NEBU SOLN 3 ML VIAL INH PRN (00:06)
[2020-01-04] MEDS ORDERED: ALBUTEROL HFA 8 GM INHALER INH PRN (00:18)
[2020-01-04] MEDS: D5W AND NSS 1,000 ML IV SCH ×3 (00:33→17:16)
[2020-01-04] MEDS: CIPROFLOXACIN 400 MG/200 ML BAG IV SCH ×3 (00:33→23:47)
[2020-01-04] MEDS: HYDROmorphone INJ 0.5 MG/0.5 ML SYR IV PRN ×4 (00:38→17:15)
--- NOTE | 2020-01-04 01:06 | History and Physical Report ---
DATE OF ADMISSION: 01/03/2020 CHIEF COMPLAINT: Abdominal pain. HISTORY OF PRESENT ILLNESS: This is a 44-year-old female with past medical history significant for asthma, mild persistent obesity, history of tobacco abuse, history of endometriosis, history of uterine fibroids, history of hepatic steatosis, history of ruptured ectopic , anxiety, PTSD, laparoscopic ventral hernia repair with mesh placement in 2011, history of diverticulosis, diverticulitis status post sigmoid colectomy in 2014, laparoscopic cholecystectomy in 2016, and currently she also has incisional hernia. She recently saw a surgeon in [place] and they have planned for possible procedure. Comes because of abdominal pain. The patient states in the afternoon she started with abdominal pain. The patient is nauseous. Last bowel movement was in the afternoon. She says she has passed some gas, but because of significant severe pain all over the abdomen, mostly in the upper part on the right side, 8/10 in severity, she came to the ER and CAT scan is showing small-bowel obstruction in the complex ventral hernia region. Surgery was notified by the ER and advised for conservative management for now. With the pain medication, pain is improved, currently only 3/10 in severity, resting comfortably and hemodynamically stable. Has some headache today. Whenever she gets pain, she gets some dizziness. No blurred vision, no earache, no runny nose, no sore throat, no difficulty swallowing. No odynophagia. Appetite is okay otherwise. No cough, no fever, no chills. Feeling cold and hot because she is going through menopause. No shortness of breath. She says she has some chest discomfort in the lower part of chest, possibly coming from her abdomen. No diarrhea, no constipation. Otherwise, no black stools or blood in the stools. No hematuria or burning micturitions. Normal bladder movements. No swelling in the legs. Currently no rash. Otherwise active. 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 ALLERGIES: ZOSYN AND MORPHINE. PAST MEDICAL HISTORY: As mentioned above. PAST SURGICAL HISTORY: Abdominal wall hernia repair, laparoscopic bladder catheter insertion, colonoscopy, cystoscopy with insertion of stent, placement, history of cystoscopy with ureteral catheter placement, urography, laparoscopic partial colectomy with end-colostomy, laparoscopic total hysterectomy with removal of tubes, laparoscopic biopsy, laparoscopic cholecystectomy, drainage of the cyst of the right groin, salpingectomy for ectopic , umbilical hernia repair. MEDICATIONS: The patient is on Prozac 40 mg p.o. daily, Singulair 10 mg p.o. daily, Bentyl 10 mg p.o. q.i.d. p.r.n., Ativan 0.25 mg p.o. t.i.d. p.r.n., Cozaar 50 mg p.o. daily, Wellbutrin XL 300 mg p.o. daily, estradiol 2 mg p.o. daily, Prilosec 20 mg p.o. b.i.d., vitamin B complex 1 tablet daily, vitamin D 1000 units p.o. daily, ProAir 2 puffs 4 times daily, Zofran p.r.n. Benadryl 50 mg p.o. at bedtime p.r.n., Motrin 200 mg p.o. q. 4 hours p.r.n., melatonin 10 mg p.o. at bedtime, MiraLax p.r.n. FAMILY HISTORY: Significant for father had RI at age of 37, hypertension, depression. Mother has schizoaffective disorder. SOCIAL HISTORY: , smokes half pack a day for last 16 years. Alcohol rarely. No drug use. REVIEW OF SYSTEMS: As per HPI. Rest of review of systems negative. PHYSICAL EXAMINATION: GENERAL: The patient is of moderate build, not in acute distress. VITAL SIGNS: Temperature 36.5, pulse 74, respiratory rate 18, blood pressure 141/88, oxygen 97% on room air. HEENT: No pallor, no icterus. Pupils equal, round, and reactive to light. NECK: No JVD, no neck masses, no carotid bruit. CARDIOVASCULAR: S1, S2 heard, regular rate and rhythm, no murmur, no gallop. RESPIRATORY SYSTEM: Normal AP diameter. No accessory muscle use. No wheezing, no crackles. ABDOMEN: Soft, bowel sounds absent, mild abdominal discomfort. No distention. CENTRAL NERVOUS SYSTEM: Alert and oriented. Insight good. Obeys commands. Moves extremities. EXTREMITIES: No edema, no erythema. LABORATORY DATA: WBC 10.9, hemoglobin 14.1, hematocrit 40.1, platelets 215. Sodium 141, potassium 3.7, chloride 109, bicarbonate 26, BUN 26, creatinine 0.9, serum glucose 92, calcium 8.8, total bilirubin 0.3, direct bilirubin less than 0.1, AST 11, ALT 19, alkaline phosphatase 74, lipase 72. Urinalysis, trace positive. IMAGING DATA: CT of abdomen and pelvis, findings consistent with low grade small-bowel obstruction. Transition point appears to be located within a large complex ventral hernia which contains both small bowel loops and colon. Additional large ventral hernia in the pelvis containing decompressed small bowel loops. There is postoperative change from sigmoid colon resection with colocolonic anastomosis, moderate diverticulosis of the remaining colon without CT evidence of acute diverticulitis, hepatomegaly and hepatic steatosis, bilateral nephrolithiasis. ASSESSMENT AND PLAN: This is a 44-year-old female who presents with small bowel obstruction. 1. Small-bowel obstruction. History of multiple surgeries in the abdomen. Small bowel is present in the ventral hernia. Currently conservative management, with n.p.o. except meds, IV fluids, IV pain medications p.r.n., IV antiemetics p.r.n. Monitor on medical floor. Surgery was notified by the ER. We will consult surgery for further recommendations. 2. History of ventral hernia. plan for surgery in [place]. Recently saw the surgeon. 3. Asthma, mild persistent, home inhalers and nebs p.r.n. 4. Depression. Continue fluoxetine and Wellbutrin. 5. Anxiety. Ativan p.r.n. 6. Hypertension, on Cozaar. 7. Gastroesophageal reflux disease, on PPI. 8. Possible urinary tract infection. We will treat with Rocephin and follow the cultures. 9. Deep vein thrombosis prophylaxis, sequential compression devices. DISPOSITION: Admit to medical floor. Expect to discharge home and follow with family doctor. Level 1 full code. MTDD
[2020-01-04 02:37] LABS: Basophils # (auto) 0.03 K/uL (0-0.2); Basophils % (auto) 0.4 %; Eosinophils # (auto) 0.18 K/uL (0-0.5); Eosinophils % (auto) 2.2 %; Hematocrit (blood only) 39.5 % (37-47); Hemoglobin 13.7 g/dL (12.0-16.0); Immature Granulocytes # (auto) 0.02 K/uL (0.00-0.02); Immature Granulocytes % (auto) 0.2 %; Lymphocytes # (auto) 3.03 K/uL (1.2-3.4); Lymphocytes % (auto) 36.5 %; Mean Corpuscular Hgb Conc 34.7 g/dL (32-36); Mean Corpuscular Volume 89.4 fL (80-100); Mean Platelet Volume 11.6 fL (7.4-10.4); Monocytes # (auto) 0.68 K/uL (0.11-0.59); Monocytes % (auto) 8.2 %; Neutrophils # (auto) 4.37 K/uL (1.4-6.5); Neutrophils % (auto) 52.5 %; Platelet Count 207 K/uL (130-400); RDW Coefficient of Variation 13.4 % (11.5-14.5); RDW Standard Deviation 44.1 fL (36.4-46.3); Red Blood Count 4.42 M/uL (4.2-5.4); White Blood Count 8.31 K/uL (4.8-10.8)
[2020-01-04 02:58] LABS: BUN Creatinine Ratio 33.5 (10-20); Blood Urea Nitrogen 26 mg/dl (7-18); Calcium 8.2 mg/dl (8.5-10.1); Carbon Dioxide 26 mmol/L (21-32); Chloride 109 mmol/L (98-107); Creatinine Clr Calc Pharmacy 102.5 ml/min; Est GFR (Non-African American) 92.3; Glucose 133 mg/dl (70-99); Sodium 139 mmol/L (136-145)
[2020-01-04 03:02] LABS: Troponin I < 0.015 ng/ml (0-0.045)
[2020-01-04] MEDS: ONDANSETRON INJ 2 MG/ML 2 ML VIAL IV PRN ×3 (05:44→16:34)
[2020-01-04 06:04] LABS: Potassium 3.9 mmol/L (3.5-5.1)
[2020-01-04 06:05] LABS: Magnesium 1.9 mg/dl (1.8-2.4)
--- NOTE | 2020-01-04 07:29 | Hospitalist Progress Note ---
Date of Service January 04, 2020 Assessment & Plan (1) SBO (small bowel obstruction): (2) Abdominal pain, left lower quadrant: (3) UTI (urinary tract infection): ASSESSMENT AND PLAN: This is a 44-year-old female who presents with small bowel obstruction. 1. Small-bowel obstruction. History of multiple surgeries in the abdomen. Small bowel is present in the ventral hernia. Currently conservative management, with n.p.o. except meds, IV fluids, IV pain medications p.r.n., IV antiemetics p.r.n. Surgery was notified by the ER. We will consult surgery for further recommendations. 2. History of ventral hernia. Plan for surgery in [place]. Recently saw the surgeon. 3. Asthma, mild persistent, home inhalers and nebs p.r.n. 4. Depression. Continue fluoxetine and Wellbutrin. 5. Anxiety. Ativan p.r.n. 6. Hypertension, on Cozaar. 7. Gastroesophageal reflux disease, on PPI. 8. Deep vein thrombosis prophylaxis, sequential compression devices. 9. Possible urinary tract infection. We will treat with Rocephin and follow the cultures. labs reviewed ROS-No Headache, No Visual Changes, No Nausea, No Vomiting, No Fever, No Chills, No Neck Pain or Stiffness, No Chest Pain, No Palpitations, No SOB, No FIGUEROA, No Cough, No Sputum, No Wheezing, + Abdominal Pain, No Diarrhea, No Hematemesis, No Hemoptysis, No Unexpected Weight Loss, No Flank pain, No Melena, No Hematochezia, No Frequency, No Urgency, No Burning, No Hematuria, No Rashes, No Diaphoresis. Appetite is Normal, +Ventral Hernia Physical Exam Gen-AAO x 3, NAD, Afebrile, Obese Head-NCAT, EOMI, PERRLA, Anicteric Sclera, No Posterior Pharyngeal Erythema Neck-Supple, No JVD, No Thyromegaly, No Masses, No LAD, No Bruits Lungs-Clear to Auscultation Bilaterally, No Rales, No Rhonchi, No Wheezing, No Crepitus Chest-No S4, +S1, +S2, No S3, No Murmurs, No Rubs, No Gallops, No Ectopy Abdomen-Soft, Bowel Sounds Present, Ventral Hernia, Tender, Obese, Non Distended, No Hepatomegaly, No Splenomegaly, No Palpable Masses, No Rebound, No Rigidity, No Guarding Musculoskeletal-Full Range of Motion Bilaterally, No CVAT Extremities-No Cyanosis, No Clubbing, No Edema Nuero-Cranial Nerves II-XII grossly intact, Motor WNL, DTRs WNL, Strength WNL, Non Focal Psych-Normal Mood Results & Data ([facility]) Vital Signs (Past 12 Hours) Vital Signs Temp Pulse Pulse Pulse Resp BP BP 01/04/20 01:47 36.4 C L 70 18 124/77 01/03/20 23:42 36.5 C 59 L 18 156/83 H 01/03/20 23:31 78 16 159/92 H 01/03/20 22:20 74 18 141/88 H 01/03/20 20:55 80 16 153/103 H Pulse Ox 01/04/20 01:47 98 01/03/20 23:42 97 01/03/20 23:31 97 01/03/20 22:20 97 01/03/20 20:55 100
[2020-01-04] MEDS: VITAMIN B COMPLEX TAB PO SCH (07:38)
[2020-01-04] MEDS: LOSARTAN POTASSIUM 50 MG TAB PO SCH (07:40)
[2020-01-04] MEDS: estradioL 1 MG TAB PO SCH (07:40)
[2020-01-04] MEDS: PANTOprazole 40 MG TAB PO SCH ×2 (07:41→21:35)
[2020-01-04] MEDS: MONTELUKAST SODIUM 10 MG TABLET PO SCH (07:41)
[2020-01-04] MEDS: ACETAMINOPHEN 325 MG TAB PO PRN (07:42)
[2020-01-04] MEDS: BuPROPion XL 300 MG TABCR PO SCH (07:42)
[2020-01-04] MEDS ORDERED: KETOROLAC 30 MG/ML VIAL IV ONE (07:54)
[2020-01-04] MEDS ORDERED: FLUOXETINE HCL 20 MG CAP PO SCH (09:00)
[2020-01-04] MEDS ORDERED: Nursing to Pharmacy Communication ONE (09:05)
--- NOTE | 2020-01-04 09:19 | XRay Report ---
XR KUB/Abdomen 1 view CLINICAL HISTORY: 44 years-old Female presenting with SBO. TECHNIQUE: Single supine view of the abdomen was obtained. COMPARISON: CT from 01/13/2020 and plain radiograph from 07/11/2018. FINDINGS: Cholecystectomy clips noted. Mild gaseous distention of small bowel loops in the right mid abdomen. M ild gaseous distention of colon. No gross pneumoperitoneum. Calcification projects over the lower pole the right kidney. Prior punctate upper pole left renal bharath culus also noted. Excreted contrast noted in the urinary bladder. Osseous structures normal. Lung bases clear. IMPRESSION: 1. Mild gaseous distention of small bowel in the right mid abdomen could suggest ongoing partial bow el obstruction. This has not worsened. Continued follow-up to be considered. 2. Bilateral nephrolithiasis. ACT 112: Negative or not required by law. Electronically signed by: Clarence Barnett M.D. 01/04/2020 9:17 AM
--- NOTE | 2020-01-04 09:53 | Surgery Consultation ---
Date of Consultation January 04, 2020 Assessment & Plan (1) SBO (small bowel obstruction): No nausea or vomiting. The hernias are very large and would require an extensive surgery which ideally would not be done emergently in the face of a bowel obstruction. Hopefully we can rehydrate her and with pain medications the bowel obstruction will resolve with conservative management. Again ideally she could then go on to proceed to have her extensive abdominal wall reconstruction in [place]. If the bowel obstruction does not resolve we may be forced to do an urgent procedure during this hospital stay. There is no indication for emergent operation currently. Since she is not nauseated or vomiting I see no need for an NG tube at this point in time either. (2) Ventral hernia: History of Present Illness Attending Physician: Cb Lopez DO History of Present Illness 44-year-old female with extensive abdominal surgical history. She has 2 rather large ventral hernias that were known to her. She has been seen by surgeons at [facility] with plans for repair. 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 No actual vomiting. Imaging in the emergency room showed incarcerated ventral hernia with potential transition point of the small bowel. She still having some discomfort today although it is improved. No nausea vomiting today. Allergies Allergy/AdvReac Type Severity Reaction Status Date / Time piperacillin Allergy Severe SHORTNESS Verified 01/03/20 20:09 OF BREATH tazobactam Allergy Severe SHORTNESS Verified 01/03/20 20:09 OF BREATH morphine AdvReac Unknown GI SYMPTOMS Verified 01/03/20 20:09 Home Medications Home Medications Medication Instructions Recorded Confirmed Type albuterol sulfate 2.5 mg INHALATION Q4 PRN 01/03/20 01/03/20 History albuterol sulfate [ProAir HFA] 2 puff INHALATION Q4 PRN 01/03/20 01/03/20 History bupropion HCl 300 mg PO DAILY 01/03/20 01/03/20 History dicyclomine 10 mg PO QID PRN 01/03/20 01/03/20 History diphenhydramine HCl [Benadryl] 50 mg PO HS PRN 01/03/20 01/03/20 History estradiol [Estrace] 2 mg PO DAILY 01/03/20 01/03/20 History fluoxetine [Prozac] 40 mg PO HS 01/03/20 01/04/20 History ibuprofen [Motrin IB] 200 mg PO Q6H PRN 01/03/20 01/03/20 History lorazepam [Ativan] 0.25 mg PO TID PRN 01/03/20 01/03/20 History losartan [Cozaar] 50 mg PO DAILY 01/03/20 01/03/20 History melatonin 10 mg PO HS PRN 01/03/20 01/03/20 History montelukast [Singulair] 10 mg PO DAILY 01/03/20 01/03/20 History omeprazole 20 mg PO BID 01/03/20 01/03/20 History ondansetron 4 mg PO Q6H PRN 01/03/20 01/03/20 History polyethylene glycol 3350 [Miralax] 17 g PO DAILY PRN 01/03/20 01/03/20 History vitamin B complex 1 tab PO DAILY 01/03/20 01/03/20 History Patient History Medical History Abdominal pain (Acute) Abdominal pain (Acute) Abdominal pain (Acute) Abdominal pain (Acute) Abdominal pain (Acute) Abdominal pain (Acute) Abdominal pain (Acute) Abdominal pain (Acute) Abdominal pain, left lower quadrant (Acute) Abdominal pain, left lower quadrant (Acute) Constipation (Acute) Diarrhea (Acute) Diverticulitis Diverticulitis (Chronic) Diverticulitis (Acute) Diverticulitis (Acute) Diverticulitis (Acute) Diverticulitis (Acute) Diverticulitis (Acute) Diverticulitis (Acute) Diverticulitis (Chronic) Drainage from wound (Acute) Ectopic (Resolved) Endometriosis (Chronic) Epigastric abdominal pain (Acute) Fibroid (Acute) Intractable abdominal pain (Acute) Intractable abdominal pain (Acute) LUQ abdominal pain (Acute) Ovarian cyst (Acute) Ovarian cyst (Acute) Postoperative pain (Acute) Regional enteritis of small bowel (Acute) Right flank pain (Acute) Spasm of back muscles (Acute) UTI (lower urinary tract infection) (Acute) UTI (urinary tract infection) (Acute) Vomiting (Acute) Surgical History H/O: hysterectomy (Resolved) History of bowel resection (Resolved) Social History Preferred Language: Korean Communication Ability: Effective 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 Beliefs That Will Affect Care: None Current Living Situation: Spouse Feels Safe at Home: Yes Smoking Status: Current every day smoker Tobacco Type: cigarettes ; Cigarettes Per Day: 10 ; Do You Dip or Chew Tobacco: No ; Tobacco Cessation Education Requested by Patient: No Hx Alcohol Use: No Hx Substance Use: No Review of Systems Review of Systems: All systems reviewed & are unremarkable except as noted in HPI & below Physical Exam Constitutional: WD/WN, vitals as above no acute distress and not ill appearing Eyes: PERRL, conjunctivae normal, anicteric sclerae EOM intact bilaterally ENMT: external ear and nose normal, oropharynx normal Ears: no hearing impairment Neck: trachea midline, no thyromegaly Respiratory: normal respiratory effort; no respiratory distress and does not use accessory muscles Cardiovascular: Rate/Rhythm: regular rate and regular rhythm Gastrointestinal (Abdomen): Obese. Soft. Mild diffuse tenderness. No guarding rebound or rigidity. Skin: no rashes, warm and dry Psychiatric: Orientation: alert, oriented x 3 and cooperative Results & Data Vital Signs (Past 12 Hours) Vital Signs Temp Pulse Pulse Pulse Resp BP BP 01/04/20 07:29 36.5 C 66 19 130/84 01/04/20 01:47 36.4 C L 70 18 124/77 01/03/20 23:42 36.5 C 59 L 18 156/83 H 01/03/20 23:31 78 16 159/92 H 01/03/20 22:20 74 18 141/88 H Pulse Ox 01/04/20 07:29 97 01/04/20 01:47 98 01/03/20 23:42 97 01/03/20 23:31 97 01/03/20 22:20 97 PG Care Time/CCT Total # of Minutes Spent Total Time Spent with Patient: Total time spent is greater than 50% in coordination of care (as documented) at patient's floor/unit and/or counseling patient: Coding Level of Care Code 46087 Inpt Consult Level 4 Diagnoses SBO (small bowel obstruction) K56.609 Ventral hernia K43.9
--- NOTE | 2020-01-04 11:20 | Electrocardiogram Report ---
Test Reason : Blood Pressure : / mmHG Vent. Rate : 063 BPM Atrial Rate : 063 BPM P-R Int : 196 ms QRS Dur : 098 ms QT Int : 448 ms P-R-T Axes : 026 023 047 degrees QTc Int : 458 ms Normal sinus rhythm Nonspecific T wave abnormality Abnormal ECG When compared with ECG of 07-OCT-2019 19:29, Nonspecific T wave abnormality now evident in Anterior leads Confirmed by Jarek Simms ([id number]) on 01/04/2020 11:20:21 AM Referred By: REFERRED SELF Confirmed By:Jarek Simms
[2020-01-04] MEDS ORDERED: PROCHLORPERAZINE 10 MG in SYRINGE 8 ML IV PRN (15:02)
[2020-01-04] MEDS ORDERED: SODIUM CHLORIDE 0.9% 1000ML 1,000 ML IV ONE (17:48)
[2020-01-04] MEDS: PROMETHAZINE HCL 25 MG in SODIUM CHLORIDE 0.9% 50 ML IV PRN (18:10)
[2020-01-04] MEDS: FLUOXETINE HCL 20 MG CAP PO SCH (21:35)
[2020-01-05] MEDS: HYDROmorphone INJ 0.5 MG/0.5 ML SYR IV PRN ×5 (02:25→23:20)
[2020-01-05] MEDS: D5W AND NSS 1,000 ML IV SCH ×2 (02:28→10:39)
[2020-01-05 06:04] LABS: Hematocrit (blood only) 39.4 % (37-47); Hemoglobin 13.2 g/dL (12.0-16.0); Mean Corpuscular Hemoglobin 30.4 pg (25-34); Mean Corpuscular Hgb Conc 33.5 g/dL (32-36); Mean Corpuscular Volume 90.8 fL (80-100); Platelet Count 172 K/uL (130-400); RDW Coefficient of Variation 13.5 % (11.5-14.5); RDW Standard Deviation 45.1 fL (36.4-46.3); Red Blood Count 4.34 M/uL (4.2-5.4); White Blood Count 5.24 K/uL (4.8-10.8)
[2020-01-05 06:40] LABS: BUN Creatinine Ratio 20.6 (10-20); Calcium 7.9 mg/dl (8.5-10.1); Creatinine Clr Calc Pharmacy 117.3 ml/min; Est GFR (African American) 124.4; Est GFR (Non-African American) 107.4; Potassium 3.5 mmol/L (3.5-5.1)
--- NOTE | 2020-01-05 07:13 | XRay Report ---
KUB CLINICAL HISTORY: SBO, ventral hernia COMPARISON STUDY: CT of the abdomen and pelvis January 03, 2020. KUB January 04, 2020. FINDINGS: 5 mm calculus within lower pole of the right kidney is noted. A few loops of mildly dilated small bowel within the right lower quadrant persist. Visualized skeletal structures are unremarkable . IMPRESSION: 1. No change in a few loops of mildly dilated loops of small bowel within the right lower quadrant wh ich could reflect a persistent low-grade small bowel obstruction. 2. 5 mm right renal calculus. ACT 112: Negative or not required by law. Electronically signed by: Fabio Hennessy M.D. 01/05/2020 7:12 AM
--- NOTE | 2020-01-05 07:15 | Hospitalist Progress Note ---
Date of Service January 05, 2020 Assessment & Plan (1) SBO (small bowel obstruction): (2) Abdominal pain, left lower quadrant: (3) UTI (urinary tract infection): ASSESSMENT AND PLAN: This is a 44-year-old female who presents with small bowel obstruction. 1. Small-bowel obstruction. History of multiple surgeries in the abdomen. Small bowel is present in the ventral hernia. Currently conservative management, with n.p.o. except meds, IV fluids, IV pain medications p.r.n., IV antiemetics p.r.n. Surgery was notified by the ER. d/w surgery 2. History of ventral hernia. Plan for surgery in [place]. Recently saw the surgeon. 3. Asthma, mild persistent, home inhalers and nebs p.r.n. 4. Depression. Continue fluoxetine and Wellbutrin. 5. Anxiety. Ativan p.r.n. 6. Hypertension, on Cozaar. 7. Gastroesophageal reflux disease, on PPI. 8. Deep vein thrombosis prophylaxis, sequential compression devices. 9. Possible urinary tract infection. Continue Rocephin and follow the cultures. labs reviewed Possible transfer to [place] Monday if not resolved, Dr Rollins is her surgeon for [facility] which is not scheduled yet ROS-No Headache, No Visual Changes, No Nausea, No Vomiting, No Fever, No Chills, No Neck Pain or Stiffness, No Chest Pain, No Palpitations, No SOB, No FIGUEROA, No Cough, No Sputum, No Wheezing, + Abdominal Pain, No Diarrhea, No Hematemesis, No Hemoptysis, No Unexpected Weight Loss, No Flank pain, No Melena, No Hematochezia, No Frequency, No Urgency, No Burning, No Hematuria, No Rashes, No Diaphoresis. Appetite is Normal, +Ventral Hernia Physical Exam Gen-AAO x 3, NAD, Afebrile, Obese Head-NCAT, EOMI, PERRLA, Anicteric Sclera, No Posterior Pharyngeal Erythema Neck-Supple, No JVD, No Thyromegaly, No Masses, No LAD, No Bruits Lungs-Clear to Auscultation Bilaterally, No Rales, No Rhonchi, No Wheezing, No Crepitus Chest-No S4, +S1, +S2, No S3, No Murmurs, No Rubs, No Gallops, No Ectopy Abdomen-Soft, Bowel Sounds Present, Ventral Hernia, Tender, Obese, Non Distended, No Hepatomegaly, No Splenomegaly, No Palpable Masses, No Rebound, No Rigidity, No Guarding Musculoskeletal-Full Range of Motion Bilaterally, No CVAT Extremities-No Cyanosis, No Clubbing, No Edema Nuero-Cranial Nerves II-XII grossly intact, Motor WNL, DTRs WNL, Strength WNL, Non Focal Psych-Normal Mood Results & Data ([facility]) Vital Signs (Past 12 Hours) Vital Signs Temp Pulse Resp BP Pulse Ox 01/04/20 23:31 36.8 C 65 16 127/86 96
[2020-01-05] MEDS: PANTOprazole 40 MG TAB PO SCH ×2 (09:08→20:31)
[2020-01-05] MEDS: VITAMIN B COMPLEX TAB PO SCH (09:08)
[2020-01-05] MEDS: MONTELUKAST SODIUM 10 MG TABLET PO SCH (09:08)
[2020-01-05] MEDS: LOSARTAN POTASSIUM 50 MG TAB PO SCH (09:08)
[2020-01-05] MEDS: BuPROPion XL 300 MG TABCR PO SCH (09:09)
[2020-01-05] MEDS: estradioL 1 MG TAB PO SCH (09:09)
--- NOTE | 2020-01-05 09:23 | Surgery Progress Note ---
Date of Service January 05, 2020 Assessment & Plan (1) Ventral hernia: clinically much better today KUB improved and the "transition" point now in RLQ rather than in the hernia. will try clear liquids today and see how she does. will also add an abdominal binder. (2) SBO (small bowel obstruction): Subjective pt seen. feeling much better today. no more nausea. pain improved. Physical Exam Physical Exam: alert. nad abd: soft. mild tenderness mid-abdomen. +bs's. Results & Data Vital Signs (Past 12 Hours) Vital Signs Temp Pulse Resp BP Pulse Ox 01/05/20 07:31 36.7 C 67 18 140/86 98 01/04/20 23:31 36.8 C 65 16 127/86 96 PG Care Time/CCT Total # of Minutes Spent Total Time Spent with Patient: Total time spent is greater than 50% in coordination of care (as documented) at patient's floor/unit and/or counseling patient: Coding Level of Care Code 33976 Subseq Hosp Care Lvl 3 Diagnoses Ventral hernia K43.9 SBO (small bowel obstruction) K56.609
[2020-01-05] MEDS: CIPROFLOXACIN 400 MG/200 ML BAG IV SCH (12:18)
[2020-01-05] MEDS: PROMETHAZINE HCL 25 MG in SODIUM CHLORIDE 0.9% 50 ML IV PRN (12:57)
[2020-01-05] MEDS: FLUOXETINE HCL 20 MG CAP PO SCH (20:32)
[2020-01-06] MEDS: HYDROmorphone INJ 0.5 MG/0.5 ML SYR IV PRN ×5 (03:17→22:48)
[2020-01-06 06:02] LABS: Basophils # (auto) 0.02 K/uL (0-0.2); Basophils % (auto) 0.4 %; Eosinophils % (auto) 1.9 %; Hematocrit (blood only) 38.9 % (37-47); Lymphocytes % (auto) 38.5 %; Mean Corpuscular Hemoglobin 30.6 pg (25-34); Mean Corpuscular Hgb Conc 33.4 g/dL (32-36); Mean Corpuscular Volume 91.5 fL (80-100); Mean Platelet Volume 11.3 fL (7.4-10.4); Monocytes # (auto) 0.35 K/uL (0.11-0.59); Monocytes % (auto) 6.7 %; Neutrophils # (auto) 2.72 K/uL (1.4-6.5); Neutrophils % (auto) 52.5 %; Platelet Count 164 K/uL (130-400); RDW Coefficient of Variation 13.3 % (11.5-14.5); RDW Standard Deviation 44.6 fL (36.4-46.3); Red Blood Count 4.25 M/uL (4.2-5.4); White Blood Count 5.19 K/uL (4.8-10.8)
[2020-01-06 06:42] LABS: BUN Creatinine Ratio 13.6 (10-20); Calcium 8.2 mg/dl (8.5-10.1); Creatinine Clr Calc Pharmacy 122.6 ml/min; Est GFR (African American) 126.3; Potassium 3.6 mmol/L (3.5-5.1)
--- NOTE | 2020-01-06 07:26 | Hospitalist Progress Note ---
Date of Service January 06, 2020 Assessment & Plan (1) SBO (small bowel obstruction): (2) Abdominal pain, left lower quadrant: (3) UTI (urinary tract infection): ASSESSMENT AND PLAN: This is a 44-year-old female who presents with small bowel obstruction. 1. Small-bowel obstruction. History of multiple surgeries in the abdomen. Small bowel is present in the ventral hernia. Currently conservative management, with n.p.o. except meds, IV fluids, IV pain medications p.r.n., IV antiemetics p.r.n. Surgery was notified by the ER. d/w surgery 2. History of ventral hernia. Plan for surgery in [place]. Recently saw the surgeon. 3. Asthma, mild persistent, home inhalers and nebs p.r.n. 4. Depression. Continue fluoxetine and Wellbutrin. 5. Anxiety. Ativan p.r.n. 6. Hypertension, on Cozaar. 7. Gastroesophageal reflux disease, on PPI. 8. Deep vein thrombosis prophylaxis, sequential compression devices. 9. Possible urinary tract infection. Continue Rocephin and follow the cultures. labs reviewed Improving-DC today or tomorrow pending surgery dispo, Binder ordered by ROS-No Headache, No Visual Changes, No Nausea, No Vomiting, No Fever, No Chills, No Neck Pain or Stiffness, No Chest Pain, No Palpitations, No SOB, No FIGUEROA, No Cough, No Sputum, No Wheezing, Less Abdominal Pain, No Diarrhea, No Hematemesis, No Hemoptysis, No Unexpected Weight Loss, No Flank pain, No Melena, No Hematochezia, No Frequency, No Urgency, No Burning, No Hematuria, No Rashes, No Diaphoresis. Appetite is Normal, +Ventral Hernia Physical Exam Gen-AAO x 3, NAD, Afebrile, Obese Head-NCAT, EOMI, PERRLA, Anicteric Sclera, No Posterior Pharyngeal Erythema Neck-Supple, No JVD, No Thyromegaly, No Masses, No LAD, No Bruits Lungs-Clear to Auscultation Bilaterally, No Rales, No Rhonchi, No Wheezing, No Crepitus Chest-No S4, +S1, +S2, No S3, No Murmurs, No Rubs, No Gallops, No Ectopy Abdomen-Soft, Bowel Sounds Present, Ventral Hernia, Less Tender, Obese, Non Distended, No Hepatomegaly, No Splenomegaly, No Palpable Masses, No Rebound, No Rigidity, No Guarding Musculoskeletal-Full Range of Motion Bilaterally, No CVAT Extremities-No Cyanosis, No Clubbing, No Edema Nuero-Cranial Nerves II-XII grossly intact, Motor WNL, DTRs WNL, Strength WNL, Non Focal Psych-Normal Mood Results & Data ([facility]) Vital Signs (Past 12 Hours) Vital Signs Temp Pulse Resp BP Pulse Ox 01/06/20 07:04 36.7 C 70 18 154/90 H 98 01/06/20 00:23 134/85 01/05/20 23:10 36.8 C 64 16 160/89 H 99
[2020-01-06] MEDS: LOSARTAN POTASSIUM 50 MG TAB PO SCH (08:57)
[2020-01-06] MEDS: VITAMIN B COMPLEX TAB PO SCH (08:57)
[2020-01-06] MEDS: MONTELUKAST SODIUM 10 MG TABLET PO SCH (08:58)
[2020-01-06] MEDS: estradioL 1 MG TAB PO SCH (08:58)
[2020-01-06] MEDS: BuPROPion XL 300 MG TABCR PO SCH (08:58)
[2020-01-06] MEDS: PANTOprazole 40 MG TAB PO SCH ×2 (08:58→21:13)
--- NOTE | 2020-01-06 09:17 | Surgery Progress Note ---
Date of Service January 06, 2020 Assessment & Plan (1) Ventral hernia: slowly improving advance to full liquids, maybe low fiber tomorrow pt now having LLQ pain. no n/v. no bm in several days. pain is not over her hernia site. suspect stool burden. will try suppositories. will repeat KUB tomorrow. (2) SBO (small bowel obstruction): Subjective some flatus, no BM, some pain now across lower abdomen, tolerating clears Physical Exam Gastrointestinal (Abdomen): Inspection/Auscultation: + abdomen distended (minimal) Percussion/Palpation: + abdomen tender (lower abdomen) and abdomen soft Results & Data Vital Signs (Past 12 Hours) Vital Signs Temp Pulse Resp BP Pulse Ox 01/06/20 07:04 36.7 C 70 18 154/90 H 98 01/06/20 00:23 134/85 01/05/20 23:10 36.8 C 64 16 160/89 H 99 PG Care Time/CCT Total # of Minutes Spent Total Time Spent with Patient: Total time spent is greater than 50% in coordin ation of care (as documented) at patient's floor/unit and/or counseling patient: Coding Level of Care Code 52449 Subseq Hosp Care Lvl 1 Diagnoses Ventral hernia K43.9 SBO (small bowel obstruction) K56.609
[2020-01-06] MEDS: ACETAMINOPHEN 325 MG TAB PO PRN (10:08)
[2020-01-06] MEDS: ONDANSETRON INJ 2 MG/ML 2 ML VIAL IV PRN (10:09)
[2020-01-06] MEDS ORDERED: bisacodyL 10 MG SUPP PR STA (10:47)
[2020-01-06] MEDS: PROMETHAZINE HCL 25 MG in SODIUM CHLORIDE 0.9% 50 ML IV PRN (16:58)
[2020-01-06] MEDS: FLUOXETINE HCL 20 MG CAP PO SCH (21:13)
[2020-01-07] MEDS: HYDROmorphone INJ 0.5 MG/0.5 ML SYR IV PRN (04:46)
[2020-01-07] MEDS: ONDANSETRON INJ 2 MG/ML 2 ML VIAL IV PRN (04:46)
[2020-01-07 06:30] LABS: Hematocrit (blood only) 39.5 % (37-47); Hemoglobin 13.2 g/dL (12.0-16.0); Mean Corpuscular Hemoglobin 30.3 pg (25-34); Mean Corpuscular Hgb Conc 33.4 g/dL (32-36); Mean Corpuscular Volume 90.6 fL (80-100); Mean Platelet Volume 11.4 fL (7.4-10.4); Platelet Count 171 K/uL (130-400); RDW Coefficient of Variation 13.1 % (11.5-14.5); RDW Standard Deviation 43.1 fL (36.4-46.3); Red Blood Count 4.36 M/uL (4.2-5.4); White Blood Count 5.88 K/uL (4.8-10.8)
[2020-01-07 07:03] LABS: BUN Creatinine Ratio 11.6 (10-20); Calcium 8.4 mg/dl (8.5-10.1); Creatinine Clr Calc Pharmacy 112.4 ml/min; Est GFR (African American) 119.7; Est GFR (Non-African American) 103.3; Potassium 3.6 mmol/L (3.5-5.1)
[2020-01-07] MEDS ORDERED: IBUPROFEN 200 MG TAB PO PRN (07:47)
[2020-01-07] MEDS ORDERED: TRAMADOL HCL 50 MG TABLET PO PRN ×2 (07:47)
--- NOTE | 2020-01-07 07:52 | Surgery Progress Note ---
Date of Service January 07, 2020 Assessment & Plan (1) SBO (small bowel obstruction): patient appears to be slowly improving starting to have some bowel function s/p suppository will d/c dilaudid and add tramadol and ibuprofen prn pain KUB ordered for today, pending results can consider advancing diet as above. feels great today. papi regular diet. no n/v ok for d/c. f/u with [facility] as scheduled for hernia repair. Subjective patient feeling okay this AM. Had 3 small BM's since suppository and is passing flatus. She is tolerating liquids, but does have some mild nausea still. No bouts of emesis. She hopes to be discharged to home soon. Reports that dilaudid is too strong and tylenol doesn't work for her. Physical Exam Physical Exam: awake/alert Gastrointestinal (Abdomen): Percussion/Palpation: + abdomen tender (mild lower pain to palpation in lower abdomen) and abdomen soft Results & Data Vital Signs (Past 12 Hours) Vital Signs Temp Pulse Resp BP Pulse Ox 01/07/20 07:33 36.5 C 64 16 138/85 95 01/07/20 00:01 36.5 C 65 14 144/88 H 95 PG Care Time/CCT Total # of Minutes Spent Total Time Spent with Patient: Total time spent is greater than 50% in coordination of care (as documented) at patient's floor/unit and/or counseling patient: Coding Level of Care Code 65140 Subseq Hosp Care Lvl 1 Diagnoses SBO (small bowel obstruction) K56.609
--- NOTE | 2020-01-07 08:40 | XRay Report ---
XR KUB/Abdomen 1 view CLINICAL HISTORY: Small bowel obstruction COMPARISON STUDY: 01/05/2020 FINDINGS: Right lower quadrant small bowel loops are the upper limits of normal in size. There is gas present within the colon. There are surgical clips in the right upper quadrant consistent with a adam or cholecystectomy. There is a 6 mm lower pole right renal calculus. IMPRESSION: 1. No significant change from the prior study 2. Right-sided nephrolithiasis 3. Right lower quadrant small bowel loops at the upper limits of normal in size. ACT 112: Negative or not required by law. Electronically signed by: Merrill Avalos M.D. 01/07/2020 8:38 AM
[2020-01-07] MEDS: MONTELUKAST SODIUM 10 MG TABLET PO SCH (08:58)
[2020-01-07] MEDS: VITAMIN B COMPLEX TAB PO SCH (08:58)
[2020-01-07] MEDS: estradioL 1 MG TAB PO SCH (08:58)
[2020-01-07] MEDS: BuPROPion XL 300 MG TABCR PO SCH (08:58)
[2020-01-07] MEDS: LOSARTAN POTASSIUM 50 MG TAB PO SCH (08:58)
[2020-01-07] MEDS: PANTOprazole 40 MG TAB PO SCH (08:58)
--- NOTE | 2020-01-07 09:26 | Hospitalist Progress Note ---
Date of Service January 07, 2020 Assessment & Plan (1) SBO (small bowel obstruction): (2) Abdominal pain, left lower quadrant: (3) UTI (urinary tract infection): ASSESSMENT AND PLAN: This is a 44-year-old female who presents with small bowel obstruction. 1. Small-bowel obstruction. History of multiple surgeries in the abdomen. Small bowel is present in the ventral hernia. Currently conservative management, with n.p.o. except meds, IV fluids, IV pain medications p.r.n., IV antiemetics p.r.n. Surgery was notified by the ER. d/w surgery 2. History of ventral hernia. Plan for surgery in [place]. Recently saw the surgeon. 3. Asthma, mild persistent, home inhalers and nebs p.r.n. 4. Depression. Continue fluoxetine and Wellbutrin. 5. Anxiety. Ativan p.r.n. 6. Hypertension, on Cozaar. 7. Gastroesophageal reflux disease, on PPI. 8. Deep vein thrombosis prophylaxis, sequential compression devices. 9. Possible urinary tract infection. Continue Rocephin and follow the cultures. labs reviewed Improving-DC tomorrow pending surgery dispo, Binder ordered by GS, diet advanced by surgery today ROS-No Headache, No Visual Changes, No Nausea, No Vomiting, No Fever, No Chills, No Neck Pain or Stiffness, No Chest Pain, No Palpitations, No SOB, No FIGUEROA, No Cough, No Sputum, No Wheezing, Less Abdominal Pain, No Diarrhea, No Hematemesis, No Hemoptysis, No Unexpected Weight Loss, No Flank pain, No Melena, No Hematochezia, No Frequency, No Urgency, No Burning, No Hematuria, No Rashes, No Diaphoresis. Appetite is Normal, +Ventral Hernia Physical Exam Gen-AAO x 3, NAD, Afebrile, Obese Head-NCAT, EOMI, PERRLA, Anicteric Sclera, No Posterior Pharyngeal Erythema Neck-Supple, No JVD, No Thyromegaly, No Masses, No LAD, No Bruits Lungs-Clear to Auscultation Bilaterally, No Rales, No Rhonchi, No Wheezing, No Crepitus Chest-No S4, +S1, +S2, No S3, No Murmurs, No Rubs, No Gallops, No Ectopy Abdomen-Soft, Bowel Sounds Present, Ventral Hernia, Less Tender, Obese, Non Distended, No Hepatomegaly, No Splenomegaly, No Palpable Masses, No Rebound, No Rigidity, No Guarding Musculoskeletal-Full Range of Motion Bilaterally, No CVAT Extremities-No Cyanosis, No Clubbing, No Edema Nuero-Cranial Nerves II-XII grossly intact, Motor WNL, DTRs WNL, Strength WNL, Non Focal Psych-Normal Mood Admission and Anticipated Discharge Date Admission Date: January 03, 2020 Results & Data ([facility]) Vital Signs (Past 12 Hours) Vital Signs Temp Pulse Resp BP Pulse Ox 01/07/20 07:33 36.5 C 64 16 138/85 95 01/07/20 00:01 36.5 C 65 14 144/88 H 95
--- NOTE | 2020-01-07 13:22 | Discharge Summary ---
Date of Service January 07, 2020 Admission HPI Per Admitting Provider 44-year-old female with past medical history significant for asthma, mild persistent obesity, history of tobacco abuse, history of endometriosis, history of uterine fibroids, history of hepatic steatosis, history of ruptured ectopic , anxiety, PTSD, laparoscopic ventral hernia repair with mesh placement in 2011, history of diverticulosis, diverticulitis status post sigmoid colectomy in 2014, laparoscopic cholecystectomy in 2016, and currently she also has incisional hernia. She recently saw a surgeon in [place] and they have planned for possible procedure. Comes because of abdominal pain. The patient states in the afternoon she started with abdominal pain. The patient is nauseous. Last bowel movement was in the afternoon. She says she has passed some gas, but because of significant severe pain all over the abdomen, mostly in the upper part on the right side, 8/10 in severity, she came to the ER and CAT scan is showing small-bowel obstruction in the complex ventral hernia region. Surgery was notified by the ER and advised for conservative management for now. With the pain medication, pain is improved, currently only 3/10 in severity, resting comfortably and hemodynamically stable. Has some headache today. Whenever she gets pain, she gets some dizziness. No blurred vision, no earache, no runny nose, no sore throat, no difficulty swallowing. No odynophagia. Appetite is okay otherwise. No cough, no fever, no chills. Feeling cold and hot because she is going through menopause. No shortness of breath. She says she has some chest discomfort in the lower part of chest, possibly coming from her abdomen. No diarrhea, no constipation. Otherwise, no black stools or blood in the stools. No hematuria or burning micturitions. Normal bladder movements. No swelling in the legs. Currently no rash. Otherwise active. 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 Admission Exam Per Admitting Provider GENERAL: The patient is of moderate build, not in acute distress. VITAL SIGNS: Temperature 36.5, pulse 74, respiratory rate 18, blood pressure 141/88, oxygen 97% on room air. HEENT: No pallor, no icterus. Pupils equal, round, and reactive to light. NECK: No JVD, no neck masses, no carotid bruit. CARDIOVASCULAR: S1, S2 heard, regular rate and rhythm, no murmur, no gallop. RESPIRATORY SYSTEM: Normal AP diameter. No accessory muscle use. No wheezing, no crackles. ABDOMEN: Soft, bowel sounds absent, mild abdominal discomfort. No distention. CENTRAL NERVOUS SYSTEM: Alert and oriented. Insight good. Obeys commands. Moves extremities. EXTREMITIES: No edema, no erythema Principal Diagnosis 1. Small-bowel obstruction. 2. Ventral hernia. 3. Asthma, mild persistent 4. Depression. 5. Anxiety. 6. Hypertension 7. Gastroesophageal reflux disease 8. Urinary tract infection Discharge Data Allergies Allergy/AdvReac Type Severity Reaction Status Date / Time piperacillin Allergy Severe SHORTNESS Verified 01/03/20 20:09 OF BREATH tazobactam Allergy Severe SHORTNESS Verified 01/03/20 20:09 OF BREATH morphine AdvReac Unknown GI SYMPTOMS Verified 01/03/20 20:09 Consultations 01/03/20 22:00 ED Decision to Admit Stat 01/04/20 08:00 Consult General Surgery Routine Ordered Studies 01/03/20 19:13 CT abd pelvis IV con only Stat Hospital Course (1) SBO (small bowel obstruction): (2) Abdominal pain, left lower quadrant: (3) UTI (urinary tract infection): ASSESSMENT AND PLAN: This is a 44-year-old female who presents with small bowel obstruction. 1. Small-bowel obstruction. Resolved 2. Ventral Hernia. Plan for surgery in [place]. Recently saw the surgeon. 3. Asthma, mild persistent, home inhalers and nebs p.r.n. 4. Depression. Continue fluoxetine and Wellbutrin. 5. Anxiety. Ativan p.r.n. 6. Hypertension, on Cozaar. 7. Gastroesophageal reflux disease, on PPI. 8. Possible urinary tract infection. Completed Rocephin course. DC today, cleared by surgery Total Time Total Time Spent Total Time Spent (In Minutes): 45 mins Total Time Includes: Examination of the Patient, Discharge Planning and Medication Reconciliation Discharge Plan Discharge Items Patient Disposition: Home - Self-Care Reason For Visit: ABDOMINAL PAIN Discharge Diagnosis: 1. Small-bowel obstruction. 2. Ventral hernia. 3. Asthma, mild persistent 4. Depression. 5. Anxiety. 6. Hypertension 7. Gastroesophageal reflux disease 8. Urinary tract infection Condition on Discharge: Good Activity: Resume your previous activity Lifting: Gradually increase as tolerated Bathing: No limitations Sexual Activity: When tolerated Exercise/Sports: Gradually increase as tolerated Driving/Machine Use: No limitations Weightbearing: Full weightbearing Non-emergency contact: Primary Care Provider and Surgeon Call non-emergency contact if: you have any medication questions Follow-up/Referrals: Vin Singleton MD [Primary Care Provider] - Diet: Low Fiber Addtl Attending Provider Instructions: none Pending Studies at Discharge: No Stand-Alone Forms: Call Back Authorization, My [facility], Smoking Cessation Medications and DC Order Prescriptions: Continued losartan [Cozaar] 50 mg tablet 50 mg PO DAILY RF: 0 fluoxetine [Prozac] 40 mg capsule 40 mg PO HS RF: 0 albuterol sulfate 2.5 mg /3 mL (0.083 %) Solution For Nebulization 2.5 mg INHALATION Q4 PRN (Reason: Shortness Of Breath Or Wheezing) RF: 0 polyethylene glycol 3350 [Miralax] 17 gram Powder In Packet 17 g PO DAILY PRN (Reason: Constipation) RF: 0 lorazepam [Ativan] 0.5 mg tablet 0.25 mg PO TID PRN (Reason: Anxiety) RF: 0 diphenhydramine HCl [Benadryl] 25 mg Capsule 50 mg PO HS PRN (Reason: Pain) RF: 0 ibuprofen [Motrin IB] 200 mg Tablet 200 mg PO Q6H PRN (Reason: Pain) RF: 0 omeprazole 20 mg capsule,delayed release(DR/EC) 20 mg PO BID RF: 0 estradiol [Estrace] 2 mg tablet 2 mg PO DAILY RF: 0 vitamin B complex Tablet 1 tab PO DAILY RF: 0 montelukast [Singulair] 10 mg tablet 10 mg PO DAILY RF: 0 albuterol sulfate [ProAir HFA] 90 mcg/actuation Hfa Aerosol Inhaler 2 puff INHALATION Q4 PRN (Reason: Shortness Of Breath Or Wheezing) RF: 0 dicyclomine 10 mg capsule 10 mg PO QID PRN (Reason: adb pain & cramping) RF: 0 melatonin 5 mg Tablet 10 mg PO HS PRN (Reason: Sleep) RF: 0 ondansetron 4 mg Film 4 mg PO Q6H PRN (Reason: Nausea) RF: 0 bupropion HCl 300 mg tablet extended release 24 hr 300 mg PO DAILY RF: 0 Discharge Orders: Discharge Order (Routine); Ordered 01/07/20 Ordered By: Cb Lopez Admission Data Admit Date/Time: 01/03/20 22:46 Attending Provider: Cb Lopez Admit Provider: Satish Howe Primary Care Provider: Vin Singleton Other Providers: Satish Howe ; Kirt Fitzgerald
== END 2020-01-07 15:13 | disposition home or self-care (01) | DRG 389 ==
LOC: ED 19:03 → 3W 22:46

== ENCOUNTER 2022-05-09 06:30 | Observation (INO) ==
--- NOTE | 2022-04-12 08:38 | PAT Medication Instructions ---
Medication Instructions Date of Service April 12, 2022 Home Medications Medication Instructions Recorded Wheeled Walker #1 ea 03/09/22 Wheeled Walker #1 ea 03/09/22 diphenhydramine HCl 25 mg capsule (Benadryl) 50 mg PO HS melatonin 5 mg tablet 10 mg PO HS PRN albuterol sulfate 90 mcg/actuation aerosol inhaler 2 puff INHALATION Q6H PRN amlodipine 10 mg tablet (Norvasc) 10 mg PO QAM Martin Walker #1 ea bupropion HCl 300 mg 24 hr tablet, extended release 300 mg PO QAM dicyclomine 10 mg capsule 10 mg PO QID PRN fluoxetine 40 mg capsule 40 mg PO HS ibuprofen 200 mg tablet 400 mg PO Q6H PRN lorazepam 0.5 mg tablet 0.5 mg PO BID PRN montelukast 10 mg tablet (Singulair) 10 mg PO QAM omeprazole 20 mg tablet,delayed release 20 mg PO BID ASK your surgeon for instructions ibuprofen 200 mg tablet 400 mg PO Q6H PRN DO NOT take the morning of surgery dicyclomine 10 mg capsule 10 mg PO QID PRN montelukast 10 mg tablet (Singulair) 10 mg PO QAM Take morning of surgery With a small sip of water, OTHERWISE NOTHING TO EAT OR DRINK AFTER MIDNIGHT: albuterol sulfate 90 mcg/actuation aerosol inhaler 2 puff INHALATION Q6H PRN(use if needed; please bring with you to hospital day of surgery if possible) amlodipine 10 mg tablet (Norvasc) 10 mg PO QAM bupropion HCl 300 mg 24 hr tablet, extended release 300 mg PO QAM lorazepam 0.5 mg tablet 0.5 mg PO BID PRN(if needed) omeprazole 20 mg tablet,delayed release 20 mg PO BID Take evening before surgery diphenhydramine HCl 25 mg capsule (Benadryl) 50 mg PO HS melatonin 5 mg tablet 10 mg PO HS PRN(if needed) albuterol sulfate 90 mcg/actuation aerosol inhaler 2 puff INHALATION Q6H PRN(if needed) dicyclomine 10 mg capsule 10 mg PO QID PRN(if needed) fluoxetine 40 mg capsule 40 mg PO HS lorazepam 0.5 mg tablet 0.5 mg PO BID PRN(if needed) omeprazole 20 mg tablet,delayed release 20 mg PO BID Other Notes If you have any questions please call us at [phone] or [phone] or [phone] or [phone]
--- NOTE | 2022-04-14 14:37 | Anesthesiology Consultation ---
Date of Service April 14, 2022 Assessment & Plan (1) Encounter for pre-operative examination: - PONV: scop patch required in past per by and requested for upcoming surgery. This was Rx for am DOS. - COVID screening: Per assessment on 04/14/2022: Travel screen negative, no known COVID-19 positive contacts or current COVID-19 related symptoms in past 2 weeks. Surgeon arranging preop COVID testing, scheduled 05/05/2022. Awaiting results. Chart Review Chart Review: Acceptable Risk for Surgery and Patient seen in Pre Admission Testing Teaching & Discussion Pre-Anesthesia Teaching/Discussion Notes: Instructed NPO after midnight before surgery, except medications with 15 cc of water. Medication instructions provided according to the PAT guidelines. History Surgery Operation Date: 05/09/22 12:30 Proposed Procedures p Left Total Knee Arthroplasty - Prashant Romano DO Height/Weight Height: 5 ft 1 in Weight: 110.7 kg Allergies Allergy/AdvReac Type Severity Reaction Status Date / Time prochlorperazine Allergy Intermediate felt Verified 04/12/22 07:32 [From Compazine] "crazy" piperacillin Allergy Unknown Unknown Verified 04/12/22 07:32 REACTION tazobactam Allergy Unknown Unknown Verified 04/12/22 07:32 REACTION morphine AdvReac Intermediate Nausea Verified 04/12/22 07:32 Medications Home Medications Medication Instructions Recorded Confirmed Last Taken diphenhydramine HCl 25 mg capsule 50 mg PO HS 01/03/20 04/12/22 10/11/21 (Benadryl) melatonin 5 mg tablet 10 mg PO HS PRN 01/03/20 04/12/22 05/21/20 albuterol sulfate 90 mcg/actuation 2 puff INHALATION Q6H PRN 06/04/21 04/12/22 Unknown aerosol inhaler amlodipine 10 mg tablet (Norvasc) 10 mg PO QAM 10/12/21 04/12/22 Unknown Wheeled Walker #1 ea 03/09/22 03/09/22 Unknown Wheeled Walker #1 ea 03/09/22 03/09/22 Unknown bupropion HCl 300 mg 24 hr tablet, 300 mg PO QAM 04/12/22 04/12/22 Unknown extended release dicyclomine 10 mg capsule 10 mg PO QID PRN 04/12/22 04/12/22 Unknown fluoxetine 40 mg capsule 40 mg PO HS 04/12/22 04/12/22 Unknown ibuprofen 200 mg tablet 400 mg PO Q6H PRN 04/12/22 04/12/22 Unknown lorazepam 0.5 mg tablet 0.5 mg PO BID PRN 04/12/22 04/12/22 Unknown montelukast 10 mg tablet 10 mg PO QAM 04/12/22 04/12/22 Unknown (Singulair) omeprazole 20 mg tablet,delayed 20 mg PO BID 04/12/22 04/12/22 Unknown release Past Medical History Medical History (Updated 04/14/22 @ 14:50 by Marj Sánchez PA-C) Anxiety and depression Asthma Allergic, using albuterol only when allergies flare. Very rare albuterol use, no daily inhaler, last rescue inhaler use > 1 yr ago Endometriosis GERD (gastroesophageal reflux disease) controlled, stable per pt History of blood transfusion 1994-ruptured ectopic History of diverticulitis s/p bowel resection Hx of intestinal obstruction Hx of ovarian cyst s/p oophorectomy Hypertension Migraine Morbid obesity Post traumatic stress disorder PVC (premature ventricular contraction) F/U PCP Restless leg syndrome Tumor pecoma tumor (uterus)- "benign" Patient denies h/o stroke, seizures, heart attack, heart failure, DM, or blood clots. Exercise / Class Metabolic Activity III < 4 Walking/Shop/Light housework (flat surfaces d/t knee dysfunction, denies CP or SOB) Past Family History Family History Grandmother (Paternal) Family history of diabetes mellitus Grandfather (Maternal) Family history of diabetes mellitus Uncle Coronary heart disease Family hx of colon cancer Aunt Family hx of colon cancer Other Hypertension Past Surgical History Surgical History Ectopic SURGERY FOR-remote hx H/O abdominal surgery "Abdominal wall reconstruction" H/O: hysterectomy History of anesthesia reaction slow to wake; denies reintubation or unanticipated admission. History of bilateral oophorectomy History of bowel resection History of cholecystectomy History of colonoscopy History of herniorrhaphy S/P left knee arthroscopy X 2 Past Anesthesia History Other (slow to wake; pt denies any family hx of anesthesia complications- initially expressed belief her father had vague issues in past but she then spoke with himself/family and states there is no hx of anesthesia issues/complications/allergies) History of PONV No Hx of Motion Sickness, History of PONV (states always needs scop patch with surgery) and Hx of Motion Sickness Social History Smoking Status: Current every day smoker tobacco type: cigarettes Smoking cigarettes per day: 5-10 CIG DAILY *ADVISED Do You Dip or Chew Tobacco: No Hx Alcohol Use: Yes alcohol intake frequency: holidays/special occasions only Hx Substance Use: No substance use type: does not use Review of Systems Patient denies chest pain, shortness of breath, dyspnea on exertion, snoring, witnessed apneas, fever, chills, cough, wheezing, or palpitations. Physical Exam Vital Signs Vitals BP 144/95 P 84 TEMP 98.3 SP02 96% on RA RESP 17 Physical Full cervical extension range of motion without pain TMD 3.5 finger breaths Mallampati Score 3 Dentition: intact, several chipped teeth; denies missing or loose teeth, caps/crowns, implants or bridges Lungs: normal respiratory effort. Clear throughout to auscultation, no adventitious breath sounds Cardiac: regular rate and rhythm, no murmurs noted Carotid arteries: negative bruit bilat Lab Results Anesthesia Preop Results Results Anesthesia Widget: WBC 6.91 K/uL (4.8-10.8) 04/14/22 Hgb 13.9 g/dL (12.0-16.0) 04/14/22 Hct 41.4 % (37-47) 04/14/22 Plt 223 K/uL (130-400) 04/14/22 Na 138 mmol/L (136-145) 04/14/22 K 3.7 mmol/L (3.5-5.1) 04/14/22 Cl 106 mmol/L (98-107) 04/14/22 CO2 25 mmol/L (21-32) 04/14/22 BUN 21 mg/dl (6-23) 04/14/22 Creat 0.82 mg/dl (0.6-1.2) 04/14/22 Glucose Level 97 mg/dl (70-99(Fasting)) 04/14/22 PT 9.9 Seconds (9.0-12.0) 04/14/22 PTT 26.1 Seconds (21.0-31.0) 04/14/22 INR 0.9 (0.9-1.1) 04/14/22 Blood Type A Positive 04/14/22 Antibody Screen NEGATIVE 04/14/22 Testing Electrocardiogram Date: 04/14/22 NSR, rate 78 bpm Chest X-Ray Date: 04/14/22 Lung volumes are normal. Lungs are clear. There is no pneumothorax or pleural effusion. Cardiac size is normal. Mediastinal contours are normal. There is no evidence for pulmonary edema. Incidental note is made of cholecystectomy clips. IMPRESSION: No acute cardiopulmonary findings.
--- NOTE | 2022-05-05 12:01 | History & Physical Report ---
Date of Service May 05, 2022 Assessment & Plan (1) Osteoarthritis of left knee: We will proceed with a left total knee arthroplasty. Postoperatively she will be started on aspirin for DVT prophylaxis and kept overnight for postop medical management. She plans to have the hospital set up home health before discharge. History of Present Illness Chief Complaint: Osteoarthritis of the left knee. 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 She also slipped and twisted her knee while ascending stairs at work a few weeks prior. She denies any knee pain before these work-related in cidences. X-rays and MRI were ordered by my partner. She was found to have meniscal root tear. She underwent a meniscal root repair. Unfortunately, did not do well. She continued to have pain. She had to do a repeat arthroscopy to remove the suture from the root repair. During the arthroscopy, she was noted to have advanced arthritis in the medial and lateral compartments of her knee. Unfortunately, she has not done well since the surgery. She has not been able to return to work since May. She recently had a flare up her knee pain and she is ambulating with the knee immobilizer and crutches. She is really struggling with her knee. She has had multiple cortisone injections and viscosupplementation without relief. The x-rays do show arthritis of the knee. After failing extensive conservative treatment, she has elected proceed with a left total knee arthroplasty. Allergies Allergy/AdvReac Type Severity Reaction Status Date / Time prochlorperazine Allergy Intermediate felt Verified 04/12/22 07:32 [From Compazine] "crazy" piperacillin Allergy Unknown Unknown Verified 04/12/22 07:32 REACTION tazobactam Allergy Unknown Unknown Verified 04/12/22 07:32 REACTION morphine AdvReac Intermediate Nausea Verified 04/12/22 07:32 Home Medications Medication Instructions Recorded Confirmed Type diphenhydramine HCl 25 mg capsule 50 mg PO HS 01/03/20 04/12/22 History (Benadryl) melatonin 5 mg tablet 10 mg PO HS PRN 01/03/20 04/12/22 History albuterol sulfate 90 mcg/actuation 2 puff INHALATION Q6H PRN 06/04/21 04/12/22 History aerosol inhaler amlodipine 10 mg tablet (Norvasc) 10 mg PO QAM 10/12/21 04/12/22 History Wheeled Walker #1 ea 03/09/22 03/09/22 Rx Wheeled Walker #1 ea 03/09/22 03/09/22 Rx bupropion HCl 300 mg 24 hr tablet, 300 mg PO QAM 04/12/22 04/12/22 History extended release dicyclomine 10 mg capsule 10 mg PO QID PRN 04/12/22 04/12/22 History fluoxetine 40 mg capsule 40 mg PO HS 04/12/22 04/12/22 History ibuprofen 200 mg tablet 400 mg PO Q6H PRN 04/12/22 04/12/22 History lorazepam 0.5 mg tablet 0.5 mg PO BID PRN 04/12/22 04/12/22 History montelukast 10 mg tablet 10 mg PO QAM 04/12/22 04/12/22 History (Singulair) omeprazole 20 mg tablet,delayed 20 mg PO BID 04/12/22 04/12/22 History release Past Med/Surg History Medical History Anxiety and depression Asthma Allergic, using albuterol only when allergies flare. Very rare albuterol use, no daily inhaler, last rescue inhaler use > 1 yr ago Endometriosis GERD (gastroesophageal reflux disease) controlled, stable per pt History of blood transfusion 1994-ruptured ectopic History of diverticulitis s/p bowel resection Hx of intestinal obstruction Hx of ovarian cyst s/p oophorectomy Hypertension Migraine Morbid obesity Post traumatic stress disorder PVC (premature ventricular contraction) F/U PCP Restless leg syndrome Tumor pecoma tumor (uterus)- "benign" Surgical History Ectopic SURGERY FOR-remote hx H/O abdominal surgery "Abdominal wall reconstruction" H/O: hysterectomy History of anesthesia reaction slow to wake; denies reintubation or unanticipated admission. History of bilateral oophorectomy History of bowel resection History of cholecystectomy History of colonoscopy History of herniorrhaphy S/P left knee arthroscopy X 2 Family History Grandmother (Paternal) Family history of diabetes mellitus Grandfather (Maternal) Family history of diabetes mellitus Uncle Coronary heart disease Family hx of colon cancer Aunt Family hx of colon cancer Other Hypertension Social History Smoking Status: Current every day smoker Tobacco Type: Cigarettes Cigarettes Per Day: 5-10 CIG DAILY *ADVISED; Second Hand Exposure: Yes ( A CHILD); Hx Alcohol Use: Yes Hx Substance Use: No Preferred Language: Slovenian Communication Ability: Effective Cover Maker Required: No Beliefs That Will Affect Care: None Current Living Situation: Family Current Living Situation Comment: AND FATHER current occupational status: employed current occupation: [employer] Feels Safe at Home: Yes Assistive Devices: Crutches Review of Systems All systems reviewed & are unremarkable except as noted in HPI & below. Physical Exam On physical examination of the left knee, she has a slight varus deformity. She has good motion of 0 to 110 degrees. No instability. Pain of the distal medial femoral condyle and over the medial joint line.. Constitutional WD/WN, vitals as above Eyes PERRL, conjunctivae normal, anicteric sclerae ENMT external ear and nose normal, oropharynx normal Neck trachea midline, no thyromegaly Respiratory normal respiratory effort Cardiovascular RRR, no murmur, no edema Gastrointestinal (Abdomen) normal bowel sounds, soft, nontender, no hepatosplenomegaly Psychiatric A+Ox3, euthymic affect Results & Data Results & Data Laboratory Results . Diagnostic Findings X-rays of the left knee show advanced osteoarthritis with joint space narrowing, osteophyte formation, and [id number] articulation. PG Care Time/CCT Total # of Minutes Spent Total Time Spent with Patient: Total time spent is greater than 50% in coordination of care (as documented) at patient's floor/unit and/or counseling patient: Coding Level of Care Code None Diagnoses Osteoarthritis of left knee M17.12
[~2022-05-09 06:30] MED LIST changes: +ACETAMINOPHEN 500 MG TAB PO SCH; -ALBU18002 INH; -B-COTAB18 PO; -CHOL100010 PO; -DIPH25CA65 PO; +FAMOTIDINE 20 MG TAB PO SCH; -FEXO1TAB58 PO; +GABAPENTIN 900 MG DOSE PO SCH; -IBUP-1277 PO; +Ketorolac (*for OR use only*) 30 MG, dexAMETHasone 4 MG, KETAMINE HCL (**OR use only) 1... INFIL SCH; +LR 500ML BOLUS, THEN 15ML/HR IV SCH; +LR 60ML/HR IV SCH; -MELA1CAP9 PO; -OMEG10007 PO; +Scopolamine 1 MG TDSY TD SCH; +TRANEXAMIC ACID 1,000 MG **IV Intra-op IV SCH; +TRANEXAMIC ACID 1,000 MG **IV Pre-op IV SCH; +ceFAZolin 2000MG 2,000 MG/15 ML SYR IV SCH; +dexAMETHasone 4 MG TAB PO SCH
[2022-05-09] MEDS ORDERED: ROPIVACAINE 0.5% 5 MG/ML 30 ML VIAL ONE (06:34)
[2022-05-09] MEDS ORDERED: BUPIVACAINE 0.5 % 5 MG/1 ML PF 10ML VIAL ONE (06:34)
[2022-05-09] MEDS ORDERED: MIDAZOLAM HCL 1 MG/ML 2ML VIAL ONE (07:35)
[2022-05-09] MEDS ORDERED: fentaNYL citrate 100 MCG/2 ML VIAL ONE (07:35)
[2022-05-09] MEDS ORDERED: ATROPINE SULFATE 0.1 MG/ML 10ML SYR IV PRN (08:13)
[2022-05-09] MEDS ORDERED: HYDROmorphone INJ 1 MG/ML SYRINGE IV PRN (08:13)
[2022-05-09] MEDS ORDERED: ONDANSETRON INJ 2 MG/ML 2 ML VIAL IV PRN ×2 (08:13→12:12)
[2022-05-09] MEDS ORDERED: KETOROLAC 30 MG/ML VIAL IV PRN (08:13)
[2022-05-09] MEDS ORDERED: ePHEDrine sulfate 50 MG/ML AMP IV PRN (08:13)
--- NOTE | 2022-05-09 08:15 | History & Physical Bridge Note ---
Date of Service May 09, 2022 History & Physical Bridge Note I have examined the patient, reviewed the History & Physical and in the interval since the performance of the History & Physical I have noted the following changes of clinical significance: no changes noted
[2022-05-09] MEDS ORDERED: ORTHO JOINT ANESTHETIC ONE (08:36)
[2022-05-09] MEDS ORDERED: KETAMINE 50 MG/5 ML SYRINGE ONE (08:59)
[2022-05-09] MEDS ORDERED: PROPOFOL IV EMULSION 10 MG/ML 20 ML VIAL IV ONE ×3 (09:11→10:05)
[2022-05-09] MEDS ORDERED: ONDANSETRON INJ 2 MG/ML 2 ML VIAL ONE ×2 (09:11→10:07)
--- NOTE | 2022-05-09 10:05 | Operative Report ---
PG Post Operative Report Pre & Post Diagnosis Operation Date: 05/09/22 08:50 Pre-Op Diagnosis: DJD Knee Left Post-Op Diagnosis: DJD Knee Left I identified the patient and participated in the time-out.: Yes Procedure Operation Date: 05/09/22 08:50 Actual Procedures p Left Total Knee Arthroplasty(Left) - Prashant Romano DO Surgeon Prashant Romano, Screen Machine Operator Prashant Wilkes PAC Estimated Blood Loss 10 Findings Consistent with Post-Op Diagnosis Specimens Left femoral and tibial bone Complications none Disposition Disposition: Recovery Room Indications Yenny is a pleasant 46-year-old female who is been doing chronic increasing left knee pain. X-rays and clinical examination are diagnostic for advanced arthritis of the left knee. After failing conservative treatment, she elected proceed with a left total knee arthroplasty. Description of Procedure Implants used: I used a Claudio Persona total knee arthroplasty system with a size 6 narrow tivanium femur, C tibia, 28 oval patella, and a size 12 medial congruent polyethylene bearing. All components were cemented in place with Biomet cement. Yenny arrived [facility] for the above procedure. She was seen in the preoperative holding area and the operative extremity was identified and signed. She was given a preoperative antibiotic, TXA, a spinal anesthetic and an adductor nerve block. She was taken back to the operating room and laid on the table in supine position. She was given basic sedation. The operative knee was then prepped and draped in sterile fashion. A timeout was done, and the patient and the operative extremity was properly identified. A midline incision was made directly over the patella. Dissection was taken down to the extensor mechanism. A subvastus arthrotomy was used. The medial r etinaculum was released and the fat pad was mostly excised. The knee was flexed and the ACL, PCL, and meniscus were removed. A drill was sent down the center of the femoral canal followed by an int ramedullary pilar. Off that iplar a distal femoral cutting block was placed. 9 mm was resected off the distal femur at 5 of valgus. A posterior referencing AP sizing guide was then placed on the distal femur. The femur measured to be a size 6. 2 drill holes were placed in 3 of external rotation. A 4-in-1 cutting block was then impacted into place. Anterior, posterior, and chamfer cuts were then made. The proximal tibia was then exposed. An external tibial alignment guide was placed. A tibial cut guide was then anchored in place and the proximal tibia was then resected. The posterior aspect of the knee was then opened up and any additional meniscus fragments and osteophytes were removed. The tibia measured to be a size C. The tibial plate was then placed in the appropriate rotation and the tibia was drilled and punched. Trial components were then placed. I used a size 12 medial congruent polyethylene insert. The knee was brought through a full range of motion and felt to be stable. The peg holes for the femoral component were then drilled. The patella was then everted and 9 mm was resected off the posterior aspect of the patella. The patella measured to be a size 28 oval. 3 peg holes were then drilled. A trial patella was placed. The knee was once again brought through a full range of motion and felt to be stable. Trial components were then removed. The surrounding soft tissues were injected with 100 cc of an orthopedic pain control cocktail. All components were then cemented into place with Biomet cement. The final polyethylene insert was then snapped into place. Once cement was dry the tourniquet was deflated. Hemostasis was obtained. A dilute betadyne lavage was then done for 3 minutes. The joint was then irrigated with normal saline solution. The subvastus arthrotomy was then closed with #1 Vicryl suture. The skin was closed with 2-0 Vicryl, 3-0V lock suture, and malka. A soft compressive dressing was placed. She was then transferred to a hospital bed and taken to the postanesthesia care unit in stable condition. She tolerated the procedure well. Prashant Wilkes PA-C, was present for the entire procedure. He was critical for patient positioning, prepping, draping, retraction exposure, wound closure and application of sterile dressing. I attest to the content of the Intraoperative Record and any orders documented therein. Any exceptions are noted below.
--- NOTE | 2022-05-09 11:10 | XRay Report ---
XR knee LT 1 or 2V routine CLINICAL HISTORY: Postoperative evaluation. COMPARISON: MRI of the left knee March 22, 2021. Left knee radiographs March 09, 2022. FINDINGS: Alignment of the total left knee arthroplasty is anatomic. No periprosthetic fracture or u nexpected radiopaque foreign bodies are present. There are skin malka. IMPRESSION: Expected findings following total left knee arthroplasty. ACT 112: Negative or not required by law. Electronically signed by: Fabio Hennessy M.D. 05/09/2022 11:08 AM
--- NOTE | 2022-05-09 11:21 | Anesthesiology Progress Note ---
Date of Service May 09, 2022 Anesthesia Post Procedure Vital Signs Vital Signs: Temp Pulse Pulse Resp BP Pulse Ox 05/09/22 11:15 69 12 130/89 97 05/09/22 11:05 75 18 137/89 95 05/09/22 10:55 70 19 144/88 H 100 05/09/22 10:45 70 20 142/86 H 100 05/09/22 10:35 80 16 120/97 100 05/09/22 10:26 36.1 C L 97 H 20 138/88 100 05/09/22 07:02 36.7 C 82 18 150/100 H 95 Transfer of Care Handoff Completed per policy Notes Mental Status: alert / awake / arousable Patient Amnestic to Procedure: Yes Nausea / Vomiting: adequately controlled Pain: adequately controlled Airway Patency, RR, SpO2: stable & adequate BP & HR: stable & adequate Hydration State: stable & adequate Neuraxial Anesthesia: was administered and sensory block is resolving Anesthetic Complications: no major complications apparent
[2022-05-09] MEDS ORDERED: LORazepam 0.5 MG TAB PO PRN (12:12)
[2022-05-09] MEDS ORDERED: DICYCLOMINE HCL 10 MG CAP PO PRN (12:12)
[2022-05-09] MEDS ORDERED: bisacodyL 10 MG SUPP PR PRN (12:12)
[2022-05-09] MEDS ORDERED: MAGNESIUM HYDROXIDE SUSP 30 ML UDC PO PRN (12:12)
[2022-05-09] MEDS ORDERED: NALOXONE HCL 0.4 MG/1 ML VIAL/CARP IV PRN (12:12)
[2022-05-09] MEDS ORDERED: METOCLOPRAMIDE HCL INJ 5 MG/ML 2 ML VIAL IV PRN (12:12)
[2022-05-09] MEDS ORDERED: HYDROmorphone INJ 0.5 MG/0.5 ML SYR IV PRN (12:12)
[2022-05-09] MEDS ORDERED: ALBUTEROL HFA 8 GM INHALER INH PRN (12:12)
[2022-05-09] MEDS ORDERED: MELATONIN 3 MG TAB PO PRN (12:33)
[2022-05-09] MEDS: SODIUM CHLORIDE 0.9% 1000ML 1,000 ML IV SCH (14:02)
[2022-05-09] MEDS: KETOROLAC 30 MG/ML VIAL IV SCH ×3 (14:03→23:14)
[2022-05-09] MEDS: ACETAMINOPHEN 500 MG TAB PO SCH ×2 (14:07→21:10)
[2022-05-09] MEDS: oxyCODONE HCL IR 5 MG TAB (IMMEDIATE RELEASE) PO PRN ×2 (15:27→20:33)
[2022-05-09] MEDS ORDERED: Scopolamine CHECK PATCH PLACEMENT SCH (16:00)
[2022-05-09] MEDS: ceFAZolin 2000MG 2,000 MG/15 ML SYR IV SCH ×2 (16:26→23:14)
[2022-05-09] MEDS ORDERED: diphenhydrAMINE Capsule 25 MG CAP PO SCH (21:00)
[2022-05-09] MEDS ORDERED: SENNA 8.6 MG TAB PO SCH (21:00)
[2022-05-09] MEDS ORDERED: FLUoxetine HCL 20 MG CAP PO SCH (21:00)
[2022-05-09] MEDS: PANTOprazole 40 MG TAB PO SCH (21:11)
[2022-05-09] MEDS: DOCUSATE SODIUM 100 MG CAP PO SCH (21:11)
[2022-05-09] MEDS: ASPIRIN 81 MG ECTAB PO SCH (21:12)
[2022-05-10] MEDS: SODIUM CHLORIDE 0.9% 1000ML 1,000 ML IV SCH (00:14)
[2022-05-10] MEDS: oxyCODONE HCL IR 5 MG TAB (IMMEDIATE RELEASE) PO PRN ×3 (01:53→12:53)
[2022-05-10] MEDS: KETOROLAC 30 MG/ML VIAL IV SCH ×2 (05:49→12:53)
[2022-05-10] MEDS: ACETAMINOPHEN 500 MG TAB PO SCH (05:49)
--- NOTE | 2022-05-10 07:05 | Orthopedic Progress Note ---
Date of Service May 10, 2022 Assessment & Plan (1) Status post left knee replacement: Overall she is doing fairly well. She is now having much pain in the left knee. She will be seen by physical therapy today for ambulation and range of motion exercises. She is on aspirin for DVT prophylaxis. She can be discharged home later today. She will follow-up orthopedics in 2 weeks. Subjective Yenny was seen and examined at bedside this morning. Overall she is doing very well. She is having too much pain in the left knee. She is been up and ambulating to the bathroom. She has no complaints. Review of Systems All systems reviewed & are unremarkable except as noted in HPI & below. Physical Exam On physical examination of the left knee, the dressing is clean and dry. Her leg lengths are equal. She has active dorsiflexion plantarflexion of her left ankle.. Results & Data Results & Data Laboratory Results . Diagnostic Findings Postoperative x-rays of the left knee show the prosthesis to be in anatomic alignment without any evidence of fracture, desiccation, or loosening. PG Care Time/CCT Total # of Minutes Spent Total Time Spent with Patient: Total time spent is greater than 50% in coordination of care (as documented) at patient's floor/unit and/or counseling patient: Coding Level of Care Code 55841 Post Operative Follow-Up Diagnoses Status post left knee replacement Z96.652
--- NOTE | 2022-05-10 07:06 | Discharge Summary ---
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 She also slipped and twisted her knee while ascending stairs at work a few weeks prior. She denies any knee pain before these work-related incidences. X-rays and MRI were ordered by my partner. She was found to have meniscal root tear. She underwent a meniscal root repair. Unfortunately, did not do well. She continued to have pain. She had to do a repeat arthroscopy to remove the suture from the root repair. During the arthroscopy, she was noted to have advanced arthritis in the medial and lateral compartments of her knee. Unfortunately, she has not done well since the surgery. She has not been able to return to work since May. She recently had a flare up her knee pain and she is ambulating with the knee immobilizer and crutches. She is really struggling with her knee. She has had multiple cortisone injections and viscosupplementation without relief. The x-rays do show arthritis of the knee. After failing extensive conservative treatment, she has elected proceed with a left total knee arthroplasty. Admission Exam (Per Admitting) On physical examination of the left knee, she has a slight varus deformity. She has good motion of 0 to 110 degrees. No instability. Pain of the distal medial femoral condyle and over the medial joint line.. Principal Diagnosis Same as "Discharge Diagnosis" noted below under Discharge Instructions. Discharge Exam On physical examination of the left knee, the dressing is clean and dry. Her leg lengths are equal. She has active dorsiflexion plantarflexion of her left a nkle.. Discharge Data Procedures Performed Operation Date: 05/09/22 08:50 Actual Procedures p Left Total Knee Arthroplasty(Left) - Prashant Romano DO Ordered Studies 05/09/22 05:00 US - OR guided needle placemen Routine Hospital Course (1) Status post left knee replacement: On May 09, 2022 Althea arrived at [facility] and underwent a left knee replacement without complication. She had a spinal anesthetic. Postoperatively she was started on aspirin for DVT prophylaxis and transferred to the general orthopedic floors. Her hospital course was uneventful. On postop day #1, her vital signs are stable and her pain was well controlled. She was able to participate well with physical therapy doing ambulation and range of motion exercises. She was then discharged to home. She will follow with orthopedics in 2 weeks. PG Care Time/CCT Total # of Minutes Spent Total Time Spent with Patient: Total time spent is greater than 50% in coordination of care (as documented) at patient's floor/unit and/or counseling patient: Discharge Plan Discharge Items Patient Disposition: Home - Home Health Services Reason For Visit: DJD Knee Left Discharge Diagnosis: Left knee replacement Activity: Per Instructions section Non-emergency contact: Surgeon Call non-emergency contact if: your wound has increased redness and your wound has increased drainage Follow-up/Referrals: Vin Singleton MD [Primary Care Provider] - Diet: Regular Addtl Attending Provider Instructions: Activity and Therapy Recommendations: * If you are using [facility] then therapy will be provided at your home until they feel you have accomplished all of your goals. * If you are using [facility] then Physical Therapy will be provided until they feel you are ready to start Outpatient Physical Therapy. * If you are not using home therapy then Outpatient Physical Therapy should start about 3-5 days from your day of surgery. Therapy will last about 6-10 weeks * It is important not to put a pillow under your knee when you are relaxing or sleeping. It is just as important to make sure you are getting your knee perfectly straight as it is to regain your knee bend. * You were shown a series of exercises in the hospital. Do these exercises three times each day including the exercises you were shown in physical therapy. * Get up and walk several times each day. For the first four weeks, try not to stand or walk for more than one hour at a time. If you do stand or walk for more than one hour, you will not hurt anything, but your leg will likely swell. * As you feel comfortable, you may change from the walker or crutches to a cane and then to independent walking. Medications: * Narcotic You will likely be sent home from the hospital with a prescription for the narcotic pain medication that worked best throughout your stay. * Aspirin Most patients will be required to take Aspirin 81mg twice a day for 6 weeks after surgery. This is obtained [id number] and a prescription is not necessary. * Other medications may be prescribed for specific circumstances. If you have any questions, please call the office at . * Resume previous home medications unless otherwise instructed TEDs/Elastic Stockings: The white elastic stockings help limit swelling and prevent blood clots from forming in your legs.~ The more you wear them, the more they work. Wear them for six weeks. Dressing Care: The dressing can be changed after physical therapy on postop day #1. Daily dry dressing changes for a few days, especially if the incision is still draining some. If the incision is not draining then you may leave the malka open to air. If there is a little bit of drainage or if the malka are getting stuck on your clothing then cover the incision with a dry dressing. The malka will be removed at your 2 week follow-up appointment. Showering: You may shower 5 days from the day of surgery as long as the incision is no longer draining. You may shower with the malka exposed. Let soapy water run over the malka and pat them dry. Do not scrub or soak the incision. Things To Watch For: * Drainage from the incision site that occurs more than one week after your surgery. * Increased redness at the incision site. * Fever above 102 degrees Fahrenheit. * Unusual chest pain or shortness of breath. * Call [facility] at with any of the above problems Follow-Up Visit: Follow-up with Dr. Romano's PA (Prashant Wilkes) 2-3 weeks after your day of surgery. He will remove your malka and answer any questions. If you have any additional questions or concerns, Dr Romano is usually in the office at the same time and will be available An appointment was probably scheduled when you signed-up for surgery in the office. If you have any questions call Office Instructions: More detailed instructions as well as Frequently Asked Questions were provided in a folder by our office when you signed-up for surgery. Please review these instructions when you get home. If you have any further questions or concerns, please feel free to call the office at [phone] Pending Studies at Discharge: No Stand-Alone Forms: My [facility] Medications and DC Order Prescriptions: New oxycodone-acetaminophen 5-325 mg tablet 1 tab PO Q6H PRN (Reason: pain) Qty: 40 RF: 0 aspirin 81 mg Tablet,Delayed Release (Dr/Ec) 81 mg PO BID 42 Days Qty: 0 RF: 0 Continued (DME) Wheeled Walker Misc See Rx Instructions .MEDSUPPLY Qty: 1 RF: 0 (DME) Wheeled Walker Misc See Rx Instructions .MEDSUPPLY Qty: 1 RF: 0 diphenhydramine HCl [Benadryl] 25 mg Capsule 50 mg PO HS RF: 0 melatonin 5 mg Tablet 10 mg PO HS PRN (Reason: Sleep) RF: 0 albuterol sulfate 90 mcg/actuation Hfa Aerosol Inhaler 2 puff INHALATION Q6H PRN (Reason: Wheezing) RF: 0 amlodipine [Norvasc] 10 mg Tablet 10 mg PO QAM RF: 0 fluoxetine 40 mg Capsule 40 mg PO HS RF: 0 lorazepam 0.5 mg Tablet 0.5 mg PO BID PRN (Reason: Anxiety) RF: 0 ibuprofen 200 mg Tablet 400 mg PO Q6H PRN (Reason: Pain) RF: 0 montelukast [Singulair] 10 mg Tablet 10 mg PO QAM RF: 0 dicyclomine 10 mg Capsule 10 mg PO QID PRN (Reason: Abdominal Pain) RF: 0 bupropion HCl 300 mg Tablet Extended Release 24 Hr 300 mg PO QAM RF: 0 omeprazole 20 mg Tablet,Delayed Release (Dr/Ec) 20 mg PO BID RF: 0 Discharge Orders: Discharge Order (Routine); Ordered 05/10/22 Ordered By: Prashant Romano Admission Data Admit Date/Time: 05/09/22 10:28 Attending Provider: Prashant Romano Admit Provider: Prsahant Romano Primary Care Provider: Vin Singleton Other Providers: [facility],Home Healthcare
[2022-05-10] MEDS ORDERED: dexAMETHasone 4 MG TAB PO SCH (08:00)
[2022-05-10] MEDS: PANTOprazole 40 MG TAB PO SCH (08:40)
[2022-05-10] MEDS: ASPIRIN 81 MG ECTAB PO SCH (08:40)
[2022-05-10] MEDS: DOCUSATE SODIUM 100 MG CAP PO SCH (08:40)
[2022-05-10] MEDS ORDERED: MONTELUKAST SODIUM 10 MG TABLET PO SCH (09:00)
[2022-05-10] MEDS ORDERED: buPROPion XL 300 MG TABCR PO SCH (09:00)
[2022-05-10] MEDS ORDERED: MULTIVITAMIN TAB PO SCH (09:00)
[2022-05-10] MEDS ORDERED: amLODIPine BESYLATE 5 MG TAB PO SCH (09:00)
== END 2022-05-10 13:26 | disposition home health service (06) ==
LOC: PACUINP 06:30 → ASU 06:30 → 3N 15:00